=== PATIENT | male | born 1935 | race Hispanic/Latino ===

== ENCOUNTER 2016-07-31 15:28 | Inpatient (IN) | payer MEDICARE, OTHER ==
[2016-07-31] MEDS ORDERED: Sodium Chloride 0.9% 1,000 ML IV STA ×2 (15:50→17:45)
--- NOTE | 2016-07-31 16:03 | ED PDOC ---
HPI: General Adult Time Seen by Provider: 07/31/16 15:35 Chief Complaint (Nursing): Shortness Of Breath Chief Complaint (Provider): High heart rate History Per: Patient History/Exam Limitations: no limitations Onset/Duration Of Symptoms: Days (3) Additional Complaint(s): Pt. states he has had had bodyaches for [address] Gomez as he was urinating less and more freq. Was told he had a uti and given antibiotics. Went to Dr. Boswell as pain was present still in the body. There HR was elevated so sent to the ED. Pt. denies any dyspnea, weakness, headaches, chest pain, palpitations, dizziness, fever, cough. No numbness, tingles. Past Medical History Reviewed: Nursing Documentation, Vital Signs Vital Signs: Last Vital Signs Temp 98.2 F 07/31/16 15:35 Pulse 120 H 07/31/16 15:35 Resp 20 07/31/16 15:35 BP 128/70 07/31/16 15:35 Pulse Ox 94 L 07/31/16 16:09 - Medical History PMH: CAD - Surgical History Surgical History: No Surg Hx - Family History Family History: States: Unknown Family Hx - Living Arrangements Living Arrangements: With Family - Social History Current smoker - smoking cessation education provided: No Alcohol: None Drugs: Denies - Home Medications Home Medications: Ambulatory Orders Medication Instructions Recorded Digoxin [Lanoxin] PO DAILY 09/24/14 Tamsulosin [Flomax] PO DAILY 09/24/14 - Allergies Allergies/Adverse Reactions: Allergies Allergy/AdvReac Type Severity Reaction Status Date / Time No Known Allergies Allergy Verified 07/31/16 15:32 Review of Systems ROS Statement: Except As Marked, All Systems Reviewed And Found Negative Musculoskeletal: Positive for: Other (body aches) Physical Exam - Reviewed Nursing Documentation Reviewed: Yes Vital Signs Reviewed: Yes - Physical Exam Appears: Positive for: Uncomfortable Head Exam: Positive for: ATRAUMATIC, NORMAL INSPECTION, NORMOCEPHALIC Skin: Positive for: Normal Color, Warm, DRY Eye Exam: Positive for: EOMI, Normal appearance, PERRL ENT: Positive for: Normal ENT Inspection Neck: Positive for: Normal, Painless ROM Cardiovascular/Chest: Positive for: Tachycardia Respiratory: Positive for: Normal Breath Sounds. Negative for: Wheezing Gastrointestinal/Abdominal: Positive for: Normal Exam, Bowel Sounds, Soft. Negative for: Tenderness Back: Positive for: Normal Inspection. Negative for: L CVA Tenderness, R CVA Tenderness Extremity: Positive for: Normal ROM. Negative for: Tenderness, Pedal Edema Neurologic/Psych: Positive for: Alert, analytics associate II-XII, Oriented. Negative for: Motor/Sensory Deficits - Laboratory Results Result Diagrams: 07/31/16 16:00 07/31/16 16:00 Interpretation Of Abn Labs: 17 bands, bun 24 - ECG ECG: Positive for: Interpreted By Me, Viewed By Me Interpretation Of Abn EKG: afib O2 Sat by Pulse Oximetry: 94 Pulse Ox Interpretation: Normal - Radiology X-Ray: Interpreted by Me, Viewed By Me X-Ray Interpretation: No Acute Disease - CT Scan/US ct Other Rad Studies (CT/US): Read By Radiologist Other Rad Interpretation: no acute - Progress ED Course And Treament: 1815: Stable. AAOx3. Pt. urine nite pos. Likely uti and sepis. Pt. is dehydrated and getting fluids. Will need admit. 1845: Stable. Spoke with Dr. Bishop and Dr. Vigil. Dr. Kunz will admit. Dr. Rosa aware of pt. well. States hx of afib. On dig and metoprolol. 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 Wants no further rate control at this time. Sepsis likely causing HR issue. Wants dig level. Will see pt. later today. Spoke with ICU Will admit ICU. - Critical Care Total Time (In Min): 30 Documented Critical Care: Time excludes all time spent performint seperately billable procedures Disposition - Clinical Impression Clinical Impression: UTI (urinary tract infection), Sepsis, Afib - Patient ED Disposition Is Patient to be Admitted: Yes Counseled Patient/Family Regarding: Studies Performed, Diagnosis - Disposition Disposition Time: 18:50 Condition: FAIR - Pt Status Changed To: Hospital Disposition Of: Inpatient - Admit Certification Admit to Inpatient:: After my assessment, the patient will require hospitalization for at least two midnights. This is because of the severity of symptoms shown, intensity of services needed, and/or the medical risk in this patient being treated as an outpatient. - POA Present On Arrival: None
[2016-07-31 16:15] LABS: BASO % 0.2 % (0.0-2.0); EOS # 0.1 K/uL (0.0-0.7); EOS % 0.6 % (0.0-4.0); HEMATOCRIT 44.1 % (35.0-51.0); LYMPH # 0.2 K/uL (1.0-4.3); LYMPH % 1.9 % (20.0-40.0); MEAN CELL VOLUME 94.8 fl (80.0-94.0); MEAN CORPUSCULAR HGB CONC 32.7 g/dL (33.0-37.0); MEAN PLATELET VOLUME 9.5 fl (7.2-11.7); MONO # 0.2 K/uL (0.0-0.8); MONO % 2.7 % (0.0-10.0); NEUT # 7.6 K/uL (1.8-7.0); NEUT % 94.6 % (50.0-75.0); NRBC % 0.1 % (0.0-0.0); PLATELET COUNT 105 K/uL (130-400); RED CELL DISTRIBUTION WIDTH 13.4 % (11.5-14.5)
[2016-07-31 16:30] LABS: PARTIAL THROMBOPLASTIN TIME 30.6 SECONDS (23.3-32.5)
[2016-07-31 16:36] LABS: ALB/GLOB RATIO 0.9 (1.0-2.1); ALKALINE PHOSPHATASE 110 U/L (38-126); ALT/SGPT 48 U/L (21-72); AST/SGOT 60 U/L (17-59); BILIRUBIN,TOTAL 1.3 mg/dl (0.2-1.3); BLOOD UREA NITROGEN 24 mg/dl (9-20); CALCIUM 9.2 mg/dL (8.4-10.2); CARBON DIOXIDE 21 mmol/L (22-30); CHLORIDE 100 mmol/L (98-107); GFR AFRICAN-AMERICAN > 60; GLUCOSE,RANDOM 156 mg/dL (75-110); POTASSIUM 4.1 MMOL/L (3.6-5.0); SODIUM 131 mmol/l (132-148); TOTAL PROTEIN 6.9 G/DL (6.3-8.2)
[2016-07-31 17:40] LABS: NEUTROPHIL 79 % (42-75); TOTAL CELLS COUNTED 100
[2016-07-31 18:03] LABS: ABG ALLEN TEST YES; ARTERIAL BLOOD GAS HCO3 23.2 mmol/L (21-28); ARTERIAL BLOOD GAS PH 7.44 (7.35-7.45); ARTERIAL BLOOD GAS PO2 77 mm/Hg (80-100)
[2016-07-31] MEDS ORDERED: Piperacillin/Tazobact 3.375 GM in Sodium Chloride 0.9% 100 ML IVPB STA (18:17)
[2016-07-31] MEDS ORDERED: Piperacillin/Tazobact 3.375 gm Inj IVPB ONE (18:32)
[2016-07-31 19:00] LABS: RBC URINE 8 /hpf (0-3); URINE BACTERIA MANY (<OCC); URINE BILIRUBIN NEGATIVE (NEGATIVE); URINE COLOR AMBER (YELLOW); URINE GLUCOSE (UA) NEG (Normal); URINE KETONE NEGATIVE (NEGATIVE); URINE PROTEIN >=500 mg/dL (NEGATIVE); WBC URINE 58 /hpf (0-5)
[2016-07-31 19:02] LABS: URINE BLOOD SMALL (NEGATIVE); URINE LEUKOCYTE ESTERASE MOD Leu/uL (Negative)
[2016-07-31] MEDS: Sodium Chloride 0.9% 1,000 ML IV SCH (20:10)
--- NOTE | 2016-07-31 20:18 | CP.PCM.CON ---
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 Patient states he started feeling poorly ~3 days ago, and at one point felt unbalanced and had a fall in the bathroom. He then went into his PCP and told him about this and the urinary symptoms (appear to be frequency and hesitation), and was diagnosed with a UTI an put on cipro. Apparently he went in for a followup and at the office was found to have minimal improvement of symptoms as well as A fib with RVR. Patient states that he may have had a fever earlier. No chills, n/v/d. No CP/SOB/palpitations. As far as patient is aware, he has never been diagnosed with A fib. He states he is unaware of ever having an echocardiogram, only a stress test 15 years ago. He, however, is on digoxin and toprol XL. ROS: 14 systems reviewed, negative other than HPI MHx: ?CAD, ?myocardial bridge SHx: None Allergies: NKDA Medications: Per med rec Family Hx: Reviewed, denies any relevant history Social Hx: Lives with family, denies any tobacco use or any significant EtOH use Surrogate Dec Mkr: , contact info on file Past Patient History - Past Social History Alcohol: None Drugs: Denies - CARDIAC Hx Cardiac Disorders: Yes - GENITOURINARY/GYNECOLOGICAL Hx Genitourinary Disorders: Yes (UTI) - PSYCHIATRIC Hx Substance Use: No - SURGICAL HISTORY Other/Comment: bilat hernia surgery 10 years ago - ANESTHESIA Hx Anesthesia: No Meds Allergies/Adverse Reactions: Allergies Allergy/AdvReac Type Severity Reaction Status Date / Time No Known Allergies Allergy Verified 07/31/16 15:32 - Medications Medications: Current Medications Acetaminophen (Tylenol 325mg Tab) 650 mg PO Q6H PRN PRN Reason: Pain, Mild (1-3) Acetaminophen (Tylenol 325mg Tab) 650 mg PO Q6H PRN PRN Reason: Fever >100.4 F Enoxaparin Sodium (Lovenox) 40 mg SC DAILY ALYSHA PRN Reason: Protocol Diltiazem HCl 125 mg/ Sodium (Chloride) 125 mls @ 5 mls/hr IV .Q24H ONE; 5 MG/ HR PRN Reason: Protocol Stop: 08/01/16 17:05 Last Admin: 07/31/16 18:52 Dose: Not Given Piperacillin Sod/Tazobactam (Sod 3.375 gm/ Sodium Chloride) 100 mls @ 100 mls/ hr IVPB Q6 ALYSHA Sodium Chloride (Sodium Chloride 0.9%) 1,000 mls @ 100 mls/hr IV .Q10H ALYSHA Stop: 08/01/16 16:14 Physical Exam - Constitutional Appears: No Acute Distress - Head Exam Head Exam: ATRAUMATIC, NORMOCEPHALIC - Eye Exam Eye Exam: EOMI, PERRL - ENT Exam ENT Exam: Mucous Membranes Dry - Neck Exam Neck exam: Positive for: Full Rom - Respiratory Exam Respiratory Exam: Clear to Auscultation Bilateral, NORMAL BREATHING PATTERN - Cardiovascular Exam Cardiovascular Exam: Tachycardia, Irregular Rhythm, +S1, +S2 - GI/Abdominal Exam GI & Abdominal Exam: Normal Bowel Sounds, Soft - Extremities Exam Extremities exam: Positive for: full ROM - Neurological Exam Neurological exam: Alert, CN II-XII Intact, Oriented x3 - Psychiatric Exam Psychiatric exam: Normal Affect, Normal Mood - Skin Skin Exam: Dry, Warm Results - Vital Signs Recent Vital Signs: Last Vital Signs Temp 98.7 F 07/31/16 19:24 Pulse 126 H 07/31/16 19:24 Resp 18 07/31/16 19:24 BP 109/57 L 07/31/16 19:24 Pulse Ox 94 L 07/31/16 19:12 - Labs Result Diagrams: 07/31/16 16:00 07/31/16 16:00 - EKG Data EKG Interpreted by: Myself Rate: Tachycardia - EKG Data Interpretation: Acute Arrhythmia EKG comments: a fib rvr - Imaging and Cardiology Chest x-ray Status: Image reviewed by me (no acute findings) Assessment & Plan (1) Sepsis Assessment and Plan: 80 y/o with ?Cad and myocardial bridge who comes in with Sepsis 2/2 UTI and A fib with RVR. 1) Sepsis/UTI -Admit ICU -Cont IVF -Cont zosyn o/n, but he can probably be scaled down to LVQ or less broad spectrum abx if stable o/n -Hold BP meds 2/2 HTN -f/u cultures 2) A fib with RVR -- unclear if this is new or not; per patient report never heard this dx, but is on toprol and dig -Given that there is no recent echo in system, will obtain an echo -Will check serial trops o/n -Will check TSH -Will cont digoxin 3) DVT PPx -- SQ Lovenox Status: Acute (2) UTI (urinary tract infection) Status: Acute (3) Afib Status: Acute (4) DVT prophylaxis Status: Acute
[2016-07-31] MEDS ORDERED: Digoxin 500 mcg/2ml (0.5 mg/2ml) Inj IVP ONE (20:59)
--- NOTE | 2016-07-31 21:11 | CP.PCM.CON ---
History of Present Illness - History of Present Illness History of Present Illness: THE PATIENT IS A 80 YEAR OLD MALE WHO HAS A HISTORY OF ATRIAL FIBRILLATION MANY YEARS AGO AND HAS STAYED IN [facility] ON DIGOXIN. HE ALSO HAD CHEST PAIN MANY YEARS AGO AND HAD A CARDIAC CATH THAT SHOWED MYOCARDIAL BRIDGING WITH NORMAL CORONARY ARTERIES AND HE HAS REMAINED CHEST PAIN FREE ON METOPROLOL. HE ALSO HAS BPH. HE NOW STATES THAT FOR ONE WEEK HE HAS HAD WAEAKNESS, FEVERS, CHILLS, URINARY URGENCY AND FREQUENCY SMALL URINE AMOUNTS AND DARK URINE. HE HAD NOT BEEN ABLE TO EAT OR DRINK MUCH. HE WAS VERY WEAK AND FELL IN THE BATHROOM A FEW DAYS AGO. HE SAW HIS UROLOGIST 2 DAYS AGO AND WAS DIAGNOSED WITH A UTI AND WAS GIVEN CIPRO. HE DID NOT FEEL IMPROVED WITH THE CIPRO. HE SAW DR CLAUDIO IN THE OFFICE AND HE STILL FELT WEAK AND WAS FOUND TO BE IN ATRIAL FIBRILLATION AND WAS SENT TO THE ER WHERE HE WAS DIAGNOSED WITH UTI/SEPSIS AND IV FLUIDS AND ANTIBIOTICS WERE STARTED. HE HAD A LOW BP OF 88 SYSTOLIC AND IT IMPROVED WITH IV FLUIDS. HE WAS ALSO IN RAPID ATRIAL FIBRILLATION AND IV CARDIZEM WAS STARTED. CARDIOLOGY WAS CALLED TO SEE HIM. HE DENIES CHEST PAIN OR PALPITATIONS AND DENIES TRUE SYNCOPE. Past Patient History - Past Social History Alcohol: None Drugs: Denies - CARDIAC Hx Cardiac Disorders: Yes - GENITOURINARY/GYNECOLOGICAL Hx Genitourinary Disorders: Yes (UTI) - PSYCHIATRIC Hx Substance Use: No - SURGICAL HISTORY Other/Comment: bilat hernia surgery 10 years ago - ANESTHESIA Hx Anesthesia: No Meds Allergies/Adverse Reactions: Allergies Allergy/AdvReac Type Severity Reaction Status Date / Time No Known Allergies Allergy Verified 07/31/16 15:32 - Medications Medications: Current Medications Acetaminophen (Tylenol 325mg Tab) 650 mg PO Q6H PRN PRN Reason: Pain, Mild (1-3) Acetaminophen (Tylenol 325mg Tab) 650 mg PO Q6H PRN PRN Reason: Fever >100.4 F Aspirin (Ecotrin) 325 mg PO DAILY ALYSHA Digoxin (Lanoxin) 0.25 mg IVP ONCE ONE Stop: 07/31/16 21:00 Digoxin (Lanoxin) 0.25 mg PO DAILY ALYSHA Enoxaparin Sodium (Lovenox) 40 mg SC DAILY ALYSHA PRN Reason: Protocol Diltiazem HCl 125 mg/ Sodium (Chloride) 125 mls @ 5 mls/hr IV .Q24H ONE; 5 MG/ HR PRN Reason: Protocol Stop: 08/01/16 17:05 Last Admin: 07/31/16 18:52 Dose: Not Given Piperacillin Sod/Tazobactam (Sod 3.375 gm/ Sodium Chloride) 100 mls @ 100 mls/ hr IVPB Q6 ALYSHA Sodium Chloride (Sodium Chloride 0.9%) 1,000 mls @ 100 mls/hr IV .Q10H ALYSHA Stop: 08/01/16 16:14 Last Admin: 07/31/16 20:10 Dose: 100 mls/hr Physical Exam - Respiratory Exam Respiratory Exam: Clear to Auscultation Bilateral - Cardiovascular Exam Cardiovascular Exam: Tachycardia, Irregular Rhythm, +S1, +S2 - Extremities Exam Additional comments: NO LE EDEMA - Additional Findings Additional findings: EKG ATRIAL FIBRILLATION WITH RVR TROPONIN NEGATIVE DIGOXIN LEVEL 0.9 Results - Vital Signs Recent Vital Signs: Last Vital Signs Temp 98.1 F 07/31/16 20:10 Pulse 140 H 07/31/16 20:10 Resp 18 07/31/16 20:10 BP 111/78 07/31/16 20:10 Pulse Ox 97 07/31/16 20:10 - Labs Result Diagrams: 07/31/16 16:00 07/31/16 16:00 Labs: Laboratory Results - last 24 hr 07/31/16 07/31/16 19:30 19:45 Lactic Acid 1.1 Digoxin 0.9 Assessment & Plan - Assessment and Plan (Free Text) Assessment: UDTI/SEPSIS ATRIAL FIBRILLATION MYOCARDIAL BRIDGING BPH Plan: THE PATIENT WAS ADMITTED TO THE ICU O2, IV CARDIZEM, DIGOXIN, IV FLUIDS, IV ANTIBIOTICS, LOVENOX, ASPIRIN THE METOPROLOL WILL BE HELD FOR THE TIME BEING UNTIL HE IS WELL HYDRATED AND TREATED FOR UTI/SEPSIS TO PREVENT HYPOTENSION I BELIEVE THAT THE PATIENT MAY GO BACK TO SINUS RHYTHM AFTER HE IS REHYDRATED AND HAS ANTIBIOTIC TREATMENT FOR HIS UTI/SEPSIS AND WILL ONLY TREAT HIS ATRIAL FIBRILLATION WITH DIGOXIN AND IV CARDIZEM AND MONITOR THE RHYTHM FOR NOW SERIAL EKGS AND TROPONINS, TELEMETRY MONITORING
[2016-07-31] MEDS: Piperacillin/Tazobact 3.375 GM in Sodium Chloride 0.9% 100 ML IVPB SCH ×2 (22:06→22:07)
[2016-07-31 22:37] VITALS: BMI 29.0
[2016-08-01] MEDS: Piperacillin/Tazobact 3.375 GM in Sodium Chloride 0.9% 100 ML IVPB SCH ×4 (04:00→22:00)
[2016-08-01] MEDS ORDERED: Pneumococcal 23-Valent Vaccine IM ONE (06:00)
[2016-08-01 06:31] LABS: BLOOD UREA NITROGEN 19 mg/dl (9-20); CALCIUM 8.1 mg/dL (8.4-10.2); CARBON DIOXIDE 21 mmol/L (22-30); CHLORIDE 105 mmol/L (98-107); GFR AFRICAN-AMERICAN > 60; GLUCOSE,RANDOM 136 mg/dL (75-110); POTASSIUM 3.9 MMOL/L (3.6-5.0); SODIUM 132 mmol/l (132-148)
[2016-08-01 06:56] LABS: BASO % 0.4 % (0.0-2.0); HEMATOCRIT 38.7 % (35.0-51.0); LYMPH # 0.2 K/uL (1.0-4.3); LYMPH % 4.8 % (20.0-40.0); MEAN CELL VOLUME 94.6 fl (80.0-94.0); MEAN CORPUSCULAR HEMOGLOBIN 31.6 pg (27.0-31.0); MEAN CORPUSCULAR HGB CONC 33.3 g/dL (33.0-37.0); MEAN PLATELET VOLUME 9.7 fl (7.2-11.7); MONO # 0.2 K/uL (0.0-0.8); MONO % 3.9 % (0.0-10.0); NEUT # 3.8 K/uL (1.8-7.0); NEUT % 90.9 % (50.0-75.0); NRBC % 0.1 % (0.0-0.0); PLATELET COUNT 90 K/uL (130-400); RED CELL DISTRIBUTION WIDTH 13.4 % (11.5-14.5); WHITE BLOOD COUNT 4.2 K/uL (4.8-10.8)
[2016-08-01] MEDS: Sodium Chloride 0.9% 1,000 ML IV SCH (07:03)
--- NOTE | 2016-08-01 08:43 | CP.CCUPN ---
CCU Subjective - Physician Review Events Since Last Encounter (Free Text): 08/01/16 08:40 Patient awake, no distress, no fever, no chest pain, no vomiting, follow commands, events reviewed CCU Objective - Vital Signs / Intake & Output Vital Signs (Last 4 hours): Vital Signs Pulse Resp BP Pulse Ox 08/01/16 06:00 104 H 24 113/64 98 Intake and Output (Last 8hrs): Intake & Output 07/31/16 08/01/16 08/01/16 22:59 06:59 14:59 Intake Total 320 1140 Output Total 100 450 Balance 220 690 Weight 226 lb 223 lb 12.8 oz Intake: IV 200 700 Intake, Piggyback 100 Oral 120 340 Output: Urine 100 450 Urine, Voided 100 450 Other: # Bowel Movements 1 - Physical Exam Head: Positive for: Atraumatic, Normocephalic Pupils: Positive for: PERRL Conjunctiva: Positive for: Normal Ears: Positive for: Normal Mouth: Positive for: Moist Mucous Membranes Pharnyx: Positive for: Normal Nose (External): Positive for: Atraumatic Neck: Positive for: Normal Range of Motion Respiratory/Chest: Positive for: Clear to Auscultation Cardiovascular: Positive for: Irregular Rhythm Abdomen: Positive for: Normal Bowel Sounds Upper Extremity: Positive for: Normal Inspection Lower Extremity: Positive for: Normal Inspection Neurological: Positive for: GCS=15, CN II-XII Intact Psychiatric: Positive for: Alert, Oriented x 3 - Medications Active Medications: Active Medications Generic Name Dose Route Start Last Admin Trade Name Freq PRN Reason Stop Dose Admin Acetaminophen 650 mg 07/31/16 20:10 Tylenol 325mg Tab PO Q6H PRN Pain, Mild (1-3) Acetaminophen 650 mg 07/31/16 20:10 Tylenol 325mg Tab PO Q6H PRN Fever >100.4 F Aspirin 325 mg 08/01/16 09:00 Ecotrin PO DAILY [facility] Aspirin 81 mg 08/01/16 09:00 Ecotrin PO DAILY ALYSHA Digoxin 0.25 mg 08/01/16 09:00 Lanoxin PO DAILY [facility] Enoxaparin Sodium 40 mg 08/01/16 09:00 Lovenox SC DAILY [facility] Protocol Diltiazem HCl 125 mg/ Sodium 125 mls @ 5 mls/hr 07/31/16 17:06 07/31/16 18:52 Chloride IV 08/01/16 17:05 Not Given .Q24H ONE Protocol 5 MG/HR Piperacillin Sod/Tazobactam 100 mls @ 100 mls/hr 07/31/16 22:00 08/01/16 04:00 Sod 3.375 gm/ Sodium Chloride IVPB 100 mls/hr Q6 ALYSHA Administration Sodium Chloride 1,000 mls @ 100 mls/hr 07/31/16 20:15 08/01/16 07:03 Sodium Chloride 0.9% IV 08/01/16 16:14 100 mls/hr .Q10H ALYSHA Administration Tamsulosin HCl 0.4 mg 08/01/16 09:00 Flomax PO DAILY ALYSHA - Patient Studies Lab Studies: Lab Studies 08/01/16 08/01/16 07/31/16 Range/Units 06:18 06:02 20:38 WBC 4.2 L (4.8-10.8) K/uL RBC 4.09 L (4.40-5.90) Mil/uL Hgb 12.9 (12.0-18.0) g/dL Hct 38.7 (35.0-51.0) % MCV 94.6 H (80.0-94.0) fl MCH 31.6 H (27.0-31.0) pg MCHC 33.3 (33.0-37.0) g/dL RDW 13.4 (11.5-14.5) % Plt Count 90 L (130-400) K/uL MPV 9.7 (7.2-11.7) fl Neut % (Auto) 90.9 H (50.0-75.0) % Lymph % (Auto) 4.8 L (20.0-40.0) % [place] % (Auto) 3.9 (0.0-10.0) % Eos % (Auto) 0.0 (0.0-4.0) % Baso % (Auto) 0.4 (0.0-2.0) % Neut # 3.8 (1.8-7.0) K/uL Lymph # 0.2 L (1.0-4.3) K/uL [place] # 0.2 (0.0-0.8) K/uL Eos # 0.0 (0.0-0.7) K/uL Baso # 0.0 (0.0-0.2) K/uL Sodium 132 (132-148) mmol/l Potassium 3.9 (3.6-5.0) MMOL/L Chloride 105 (98-107) mmol/L Carbon Dioxide 21 L (22-30) mmol/L Anion Gap 10 (10-20) BUN 19 (9-20) mg/dl Creatinine 1.1 (0.8-1.5) mg/dL Est GFR ( Amer) > 60 Est GFR (Non-Af Amer) > 60 Random Glucose 136 H (75-110) mg/dL Lactic Acid (0.7-2.1) MMOL/L Calcium 8.1 L (8.4-10.2) mg/dL Troponin I 0.0230 0.0250 (0.00-0.120) ng/mL Digoxin (0.8-2.0) ng/mL 07/31/16 07/31/16 Range/Units 19:45 19:30 WBC (4.8-10.8) K/uL RBC (4.40-5.90) Mil/uL Hgb (12.0-18.0) g/dL Hct (35.0-51.0) % MCV (80.0-94.0) fl MCH (27.0-31.0) pg MCHC (33.0-37.0) g/dL RDW (11.5-14.5) % Plt Count (130-400) K/uL MPV (7.2-11.7) fl Neut % (Auto) (50.0-75.0) % Lymph % (Auto) (20.0-40.0) % [place] % (Auto) (0.0-10.0) % Eos % (Auto) (0.0-4.0) % Baso % (Auto) (0.0-2.0) % Neut # (1.8-7.0) K/uL Lymph # (1.0-4.3) K/uL [place] # (0.0-0.8) K/uL Eos # (0.0-0.7) K/uL Baso # (0.0-0.2) K/uL Sodium (132-148) mmol/l Potassium (3.6-5.0) MMOL/L Chloride (98-107) mmol/L Carbon Dioxide (22-30) mmol/L Anion Gap (10-20) BUN (9-20) mg/dl Creatinine (0.8-1.5) mg/dL Est GFR ( Amer) Est GFR (Non-Af Amer) Random Glucose (75-110) mg/dL Lactic Acid 1.1 (0.7-2.1) MMOL/L Calcium (8.4-10.2) mg/dL Troponin I (0.00-0.120) ng/mL Digoxin 0.9 (0.8-2.0) ng/mL Laboratory Results - last 24 hr 07/31/16 07/31/16 07/31/16 19:30 19:45 20:38 WBC RBC Hgb Hct MCV MCH MCHC RDW Plt Count MPV Neut % (Auto) Lymph % (Auto) [place] % (Auto) Eos % (Auto) Baso % (Auto) Neut # Lymph # [place] # Eos # Baso # Sodium Potassium Chloride Carbon Dioxide Anion Gap BUN Creatinine Est GFR ( Amer) Est GFR (Non-Af Amer) Random Glucose Lactic Acid 1.1 Calcium Troponin I 0.0250 Digoxin 0.9 08/01/16 08/01/16 06:02 06:18 WBC 4.2 L RBC 4.09 L Hgb 12.9 Hct 38.7 MCV 94.6 H MCH 31.6 H MCHC 33.3 RDW 13.4 Plt Count 90 L MPV 9.7 Neut % (Auto) 90.9 H Lymph % (Auto) 4.8 L [place] % (Auto) 3.9 Eos % (Auto) 0.0 Baso % (Auto) 0.4 Neut # 3.8 Lymph # 0.2 L [place] # 0.2 Eos # 0.0 Baso # 0.0 Sodium 132 Potassium 3.9 Chloride 105 Carbon Dioxide 21 L Anion Gap 10 BUN 19 Creatinine 1.1 Est GFR ( Amer) > 60 Est GFR (Non-Af Amer) > 60 Random Glucose 136 H Lactic Acid Calcium 8.1 L Troponin I 0.0230 Digoxin EKG/Cardiology Studies: Cardiology / EKG Studies 08/01/16 08:00 EKG [ELECTROCARDIOGRAM] Routine Comment: Mode Of Transportation: PORTABLE Reason For Exam: at fib Critical Care Progress Note - Nutrition Nutrition: Nutrition Category Date Time Status Regular Diet [DIET] Diets 07/31/16 Breakfast Active Assessment/Plan - Assessment and Plan (Free Text) Assessment: A/P UTI, sepsis, myocardial bridge, CAD, A Fib - Antibiotics - IV fluid - Cardiology follow up - Continue meds
[2016-08-01] MEDS ORDERED: Aspirin 325 mg EC Tablets PO SCH (09:00)
[2016-08-01] MEDS ORDERED: Digoxin 250 mcg (0.25 mg) Tab PO SCH (09:00)
[2016-08-01] MEDS: Digoxin 250 mcg (0.25 mg) Tab PO SCH (10:35)
[2016-08-01] MEDS: Enoxaparin 40 mg Syringe SC SCH (10:35)
--- NOTE | 2016-08-01 10:58 | RAD ---
HISTORY: tachy COMPARISON: 2011 FINDINGS: LUNGS: No active pulmonary disease. PLEURA: No significant pleural effusion identified, no pneumothorax apparent. CARDIOVASCULAR: Normal. OSSEOUS STRUCTURES: No significant abnormalities. VISUALIZED UPPER ABDOMEN: Normal. OTHER FINDINGS: None. IMPRESSION: No active disease.
[2016-08-01 11:47] LABS: TOTAL CELLS COUNTED 100
[2016-08-01 11:48] LABS: NEUTROPHIL 75 % (42-75)
[2016-08-01 11:49] LABS: EOSINOPHIL 1 % (0-7)
--- NOTE | 2016-08-01 23:56 | CP.PCM.HP ---
History of Present Illness - History of Present Illness History of Present Illness: 80 yo with hx of A-fib Myocardial bridging admitted for a-fib with RVR and probable sepsis 2 to UTI/Prostatitis Present on Admission - Present on Admission Any Indicators Present on Admission: No Past Patient History - Past Medical History & Family History Past Medical History?: Yes - Past Social History Alcohol: None Drugs: Denies - CARDIAC Hx Cardiac Disorders: Yes - MUSCULOSKELETAL/RHEUMATOLOGICAL Hx Falls: Yes - GENITOURINARY/GYNECOLOGICAL Hx Genitourinary Disorders: Yes (UTI) - PSYCHIATRIC Hx Substance Use: No - SURGICAL HISTORY Other/Comment: bilat hernia surgery 10 years ago - ANESTHESIA Hx Anesthesia: No Meds Allergies/Adverse Reactions: Allergies Allergy/AdvReac Type Severity Reaction Status Date / Time No Known Allergies Allergy Verified 07/31/16 15:32 Physical Exam - Respiratory Exam Respiratory Exam: NORMAL BREATHING PATTERN - Cardiovascular Exam Cardiovascular Exam: REGULAR RHYTHM - GI/Abdominal Exam GI & Abdominal Exam: Normal Bowel Sounds Results - Vital Signs Recent Vital Signs: Last Vital Signs Temp 98.0 F 08/01/16 20:00 Pulse 118 H 08/01/16 22:00 Resp 21 08/01/16 22:00 BP 142/77 08/01/16 22:00 Pulse Ox 96 08/01/16 22:00 - Labs Result Diagrams: 08/01/16 06:02 08/01/16 06:02 Labs: Laboratory Results - last 24 hr 08/01/16 08/01/16 06:02 06:18 WBC 4.2 L RBC 4.09 L Hgb 12.9 Hct 38.7 MCV 94.6 H MCH 31.6 H MCHC 33.3 RDW 13.4 Plt Count 90 L MPV 9.7 Neut % (Auto) 90.9 H Lymph % (Auto) 4.8 L [place] % (Auto) 3.9 Eos % (Auto) 0.0 Baso % (Auto) 0.4 Neut # 3.8 Lymph # 0.2 L [place] # 0.2 Eos # 0.0 Baso # 0.0 Neutrophils % (Manual) 75 Band Neutrophils % 13 H* Lymphocytes % (Manual) 6 L Monocytes % (Manual) 5 Eosinophils % (Manual) 1 Platelet Estimate Decreased L RBC Morphology Normal Macrocytosis (manual) Slight Sodium 132 Potassium 3.9 Chloride 105 Carbon Dioxide 21 L Anion Gap 10 BUN 19 Creatinine 1.1 Est GFR ( Amer) > 60 Est GFR (Non-Af Amer) > 60 Random Glucose 136 H Calcium 8.1 L Troponin I 0.0230 Assessment & Plan - Assessment and Plan (Free Text) Assessment: A-fib with RVR Myocardial bridging Dig Cardiezem ASA ?? sepsis 2 to UTI/Prostatitis Abx Flomax cultures - Date & Time Date: 08/01/16 Time: 22:22
[2016-08-02] MEDS: Piperacillin/Tazobact 3.375 GM in Sodium Chloride 0.9% 100 ML IVPB SCH ×2 (04:23→09:16)
--- NOTE | 2016-08-02 06:46 | CARD ---
APPROVED REPORT EXAM: Two-dimensional and M-mode echocardiogram with Doppler and color Doppler. Other Information Quality : GoodRhythm : Atrial Fibrillation INDICATION Atrial Fibrillation 2D DIMENSIONS IVSd0.98 (0.7-1.1cm)LVDd2.99 (3.9-5.9cm) LVOT Diameter2.67 (1.8-2.4cm)PWd1.05 (0.7-1.1cm) IVSs1.59 (0.8-1.2cm)LVDs2.78 (2.5-4.0cm) FS (%) 7.3 %PWs1.66 (0.8-1.2cm) M-Mode DIMENSIONS Left Atrium (MM)4.34 (2.5-4.0cm)Aortic Root3.44 (2.2-3.7cm) Aortic Cusp Exc.2.06 (1.5-2.0cm) Aortic Valve AI P 1/2 [id number] Mitral Valve E/A ratio0.0 TDI E/Lateral E'0.0E/Medial E'0.0 Tricuspid Valve TR Peak [id number] [id number] Peak Gr.17mmHg [id number] LEFT VENTRICLE The left ventricle is normal size. There is normal left ventricular wall thickness. The left ventricular function is normal. The left ventricular ejection fraction is 55% There is normal LV segmental wall motion. Not determined due to afib No left ventricle thrombus noted on this study. There is no ventricular septal defect visualized. There is no left ventricular aneurysm. There is no mass noted in the left ventricle. RIGHT VENTRICLE The right ventricle is normal size. There is normal right ventricular wall thickness. The right ventricular systolic function is normal. ATRIA The left atrium is mildly dilated. The right atrium size is normal. The interatrial septum is intact with no evidence for an atrial septal defect. AORTIC VALVE The aortic valve is mildly sclerotic. There is mild aortic regurgitation. There is no aortic valvular stenosis. There is no aortic valvular vegetation. MITRAL VALVE Mitral annular calcification is moderate to severe. The mitral valve leaflets are thickened and calcified. There is no evidence of mitral valve prolapse. There is no mitral valve stenosis. There is no mitral valve regurgitation noted. TRICUSPID VALVE The tricuspid valve is normal in structure and function. There is mild tricuspid regurgitation. Right ventricular systolic pressure is estimated at less than 30 mmHg. There is no tricuspid valve prolapse or vegetation. There is no tricuspid valve stenosis. PULMONIC VALVE The pulmonary valve is normal in structure and function. There is no pulmonic valvular regurgitation. There is no pulmonic valvular stenosis. GREAT VESSELS The aortic root is normal in size. The ascending aorta is normal in size. The IVC is normal in size and collapses >50% with inspiration. PERICARDIAL EFFUSION The pericardium appears normal. There is no pleural effusion. <Conclusion> Normal LV Systolic Function Aortic Valve Sclerosis Mild Aortic Insufficiency Mitral Annular Calcification Aortic Valve Sclerosis
--- NOTE | 2016-08-02 07:47 | CP.CCUPN ---
CCU Subjective - Physician Review Events Since Last Encounter (Free Text): 08/02/16 07:46 Patient awake, no distress, no fever, no chest pain, no vomiting, follow commands, events reviewed CCU Objective - Vital Signs / Intake & Output Vital Signs (Last 4 hours): Vital Signs Temp Pulse Resp BP Pulse Ox 08/02/16 06:00 105 H 29 H 113/58 L 95 08/02/16 04:00 98.0 F 103 H 22 107/64 93 L Intake and Output (Last 8hrs): Intake & Output 08/01/16 08/02/16 08/02/16 22:59 06:59 14:59 Intake Total 1020 160 Output Total 800 600 Balance 220 -440 Intake: IV 500 40 Intake, Piggyback 200 Oral 320 120 Output: Urine 800 600 Urine, Voided 800 600 Other: # Voids Urine, Voided 2 2 # Bowel Movements 1 1 - Physical Exam Head: Positive for: Atraumatic, Normocephalic Pupils: Positive for: PERRL Conjunctiva: Positive for: Normal Ears: Positive for: Normal Mouth: Positive for: Moist Mucous Membranes Pharnyx: Positive for: Normal Nose (External): Positive for: Atraumatic Neck: Positive for: Normal Range of Motion Respiratory/Chest: Positive for: Clear to Auscultation Cardiovascular: Positive for: Irregular Rhythm Abdomen: Positive for: Normal Bowel Sounds Upper Extremity: Positive for: Normal Inspection Lower Extremity: Positive for: Normal Inspection Neurological: Positive for: GCS=15, CN II-XII Intact Psychiatric: Positive for: Alert, Oriented x 3 - Medications Active Medications: Active Medications Generic Name Dose Route Start Last Admin Trade Name Freq PRN Reason Stop Dose Admin Acetaminophen 650 mg 07/31/16 20:10 Tylenol 325mg Tab PO Q6H PRN Pain, Mild (1-3) Acetaminophen 650 mg 07/31/16 20:10 Tylenol 325mg Tab PO Q6H PRN Fever >100.4 F Aspirin 81 mg 08/01/16 09:00 08/01/16 10:34 Ecotrin PO 81 mg DAILY ALYSHA Administration Digoxin 0.25 mg 08/01/16 09:00 08/01/16 10:35 Lanoxin PO 0.25 mg DAILY ALYSHA Administration Enoxaparin Sodium 40 mg 08/01/16 09:00 08/01/16 10:35 Lovenox SC 40 mg DAILY ALYSHA Administration Protocol Piperacillin Sod/Tazobactam 100 mls @ 100 mls/hr 07/31/16 22:00 08/02/16 04:23 Sod 3.375 gm/ Sodium Chloride IVPB 100 mls/hr Q6 ALYSHA Administration Tamsulosin HCl 0.4 mg 08/01/16 09:00 08/01/16 10:35 Flomax PO 0.4 mg DAILY ALYSHA Administration - Patient Studies Lab Studies: Lab Studies 08/01/16 Range/Units 06:02 Neutrophils % (Manual) 75 (42-75) % Band Neutrophils % 13 H* (0-2) % Lymphocytes % (Manual) 6 L (20-50) % Monocytes % (Manual) 5 (0-10) % Eosinophils % (Manual) 1 (0-7) % Platelet Estimate Decreased L (NORMAL) RBC Morphology Normal (NORMAL) Macrocytosis (manual) Slight Laboratory Results - last 24 hr 08/01/16 06:02 Neutrophils % (Manual) 75 Band Neutrophils % 13 H* Lymphocytes % (Manual) 6 L Monocytes % (Manual) 5 Eosinophils % (Manual) 1 Platelet Estimate Decreased L RBC Morphology Normal Macrocytosis (manual) Slight EKG/Cardiology Studies: Cardiology / EKG Studies 08/01/16 08:00 EKG [ELECTROCARDIOGRAM] Routine Comment: Mode Of Transportation: PORTABLE Reason For Exam: at fib Critical Care Progress Note - Nutrition Nutrition: Nutrition Category Date Time Status Regular Diet [DIET] Diets 07/31/16 Breakfast Active Assessment/Plan - Assessment and Plan (Free Text) Assessment: A/P UTI, sepsis, myocardial bridge, CAD, A Fib - Antibiotics - IV fluid - Cardiology follow up - Continue meds
[2016-08-02 07:56] LABS: HEMATOCRIT 41.5 % (35.0-51.0); MEAN CELL VOLUME 94.6 fl (80.0-94.0); MEAN CORPUSCULAR HEMOGLOBIN 31.1 pg (27.0-31.0); MEAN CORPUSCULAR HGB CONC 32.9 g/dL (33.0-37.0); RED CELL DISTRIBUTION WIDTH 13.8 % (11.5-14.5); WHITE BLOOD COUNT 4.9 K/uL (4.8-10.8)
[2016-08-02 08:03] LABS: BLOOD UREA NITROGEN 16 mg/dl (9-20); CALCIUM 8.4 mg/dL (8.4-10.2); CARBON DIOXIDE 22 mmol/L (22-30); CHLORIDE 106 mmol/L (98-107); GFR AFRICAN-AMERICAN > 60; GLUCOSE,RANDOM 107 mg/dL (75-110); POTASSIUM 3.7 MMOL/L (3.6-5.0); SODIUM 134 mmol/l (132-148)
[2016-08-02] MEDS: Digoxin 250 mcg (0.25 mg) Tab PO SCH (08:36)
[2016-08-02] MEDS: Enoxaparin 40 mg Syringe SC SCH (08:37)
[2016-08-02 09:36] LABS: THYROID STIMULATING HORMONE 3.13 mIU/ML (0.46-4.68)
--- NOTE | 2016-08-02 11:50 | CP.PCM.PN ---
Subjective - Date & Time of Evaluation Date of Evaluation: 08/02/16 Time of Evaluation: 11:00 - Subjective Subjective: NO CHEST PAIN, PALPITATIONS OR SOB FEELS BETTER AND STRONGER TODAY Objective - Vital Signs/Intake and Output Vital Signs (last 24 hours): Temp Pulse Resp BP Pulse Ox 97.7 F 114 H 20 129/61 96 08/02/16 08:00 08/02/16 10:00 08/02/16 10:00 08/02/16 10:00 08/02/16 10:00 Intake and Output: 08/02/16 08/02/16 06:59 18:59 Intake Total 460 360 Output Total 950 500 Balance -490 -140 - Medications Medications: Current Medications Acetaminophen (Tylenol 325mg Tab) 650 mg PO Q6H PRN PRN Reason: Pain, Mild (1-3) Acetaminophen (Tylenol 325mg Tab) 650 mg PO Q6H PRN PRN Reason: Fever >100.4 F Aspirin (Ecotrin) 81 mg PO DAILY [facility] Last Admin: 08/02/16 08:36 Dose: 81 mg Digoxin (Lanoxin) 0.25 mg PO DAILY [facility] Last Admin: 08/02/16 08:36 Dose: 0.25 mg Enoxaparin Sodium (Lovenox) 40 mg SC DAILY [facility] PRN Reason: Protocol Last Admin: 08/02/16 08:37 Dose: 40 mg Piperacillin Sod/Tazobactam (Sod 3.375 gm/ Sodium Chloride) 100 mls @ 100 mls/ hr IVPB Q6 [facility] Last Admin: 08/02/16 09:16 Dose: 100 mls/hr Tamsulosin HCl (Flomax) 0.4 mg PO DAILY [facility] Last Admin: 08/02/16 08:36 Dose: 0.4 mg - Labs Labs: 08/02/16 06:00 08/02/16 06:00 PT 10.6 SECONDS (9.6-11.2) 07/31/16 16:00 INR 1.02 (0.92-1.08) 07/31/16 16:00 APTT 30.6 SECONDS (23.3-32.5) 07/31/16 16:00 - Respiratory Exam Respiratory Exam: Clear to Ausculation Bilateral - Cardiovascular Exam Cardiovascular Exam: Tachycardia, Irregular Rhythm, +S1, +S2 - Extremities Exam Extremities Exam: Normal Inspection - Additional Findings Additional findings: 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
--- NOTE | 2016-08-02 14:24 | CP.PCM.CON ---
History of Present Illness - History of Present Illness History of Present Illness: 80 y/o male comes in with several days of urinary symptoms as well as a fall, and A fib with RVR. Patient states he started feeling poorly ~3 days ago, and at one point felt unbalanced and had a fall in the bathroom. He then went into his PCP and told him about this and the urinary symptoms (appear to be frequency and hesitation) , and was diagnosed with a UTI an put on cipro. IN ICU WAS FOUND TO HAVE ESBL + ECOLI ON URINE CULTURE MHx: ?myocardial bridge, BPH BY HX SHx: None Allergies: NKDA Medications: digoxin, toprol xl, cipro asa Family Hx: denies any relevant history Social Hx: Lives with family, denies any tobacco use or any significant EtOH use Review of Systems - Constitutional Constitutional: Anorexia, Malaise - EENT Eyes: absent: As Per HPI, Blind Spots, Blurred Vision, Change in Vision, Decreased Night Vision, Diplopia, Discharge, Dry Eye, Exophthalmos, Floaters, Irritation, Itchy Eyes, Loss of Peripheral Vision, Pain, Photophobia, Requires Corrective Lenses, Sees Flashes, Spots in Vision, Tunnel Vision, Other Visual Disturbances, Loss of Vision, Other Ears: absent: As Per HPI, Decreased Hearing, Ear Discharge, Ear Pain, Tinnitus, Abnormal Hearing, Disequilibrium, Dizziness, Other Nose/Mouth/Throat: absent: As Per HPI, Epistaxis, Nasal Congestion, Nasal Discharge, Nasal Obstruction, Nasal Trauma, Nose Pain, Post Nasal Drip, Sinus Pain, Sinus Pressure, Bleeding Gums, Change in Voice, Dental Pain, Dry Mouth, Dysphagia, Halitosis, Hoarsness, Lip Swelling, Mouth Lesions, Mouth Pain, Odynophagia, Sore Throat, Throat Swelling, Tongue Swelling, Facial Pain, Neck Pain, Neck Mass, Other - Cardiovascular Cardiovascular: As Per HPI - Respiratory Respiratory: absent: As Per HPI, Cough, Dyspnea, Hemoptysis, Dyspnea on Exertion , Wheezing, Snoring, Stridor, Pain on Inspiration, Chest Congestion, Excessive Mucous Production, Change in Mucous Color, Pain with Coughing, Other - Gastrointestinal Gastrointestinal: absent: As Per HPI, Abdominal Pain, Belching, Bloating, Change in Bowel Habits, Change in Stool Character, Coffee Ground Emesis, Constipation, Cramping, Diarrhea, Dyspepsia, Dysphagia, Early Satiety, Excessive Flatus, Fecal Incontinence, Heartburn, Hematemesis, Hematochezia, Loose Stools, Melena, Nausea, Odynophagia, Temesmus, Vomiting, Other - Genitourinary Genitourinary: As Per HPI, Change in Urinary Stream, Difficulty Urinating, Urinary Incontinence, Urinary Frequency, Urinary Hesitance, Voiding Freq/Small Amts - Musculoskeletal Musculoskeletal: absent: As Per HPI, Abnormal Gait, Arthralgias, Atrophy, Back Pain, Deformity, Joint Swelling, Limited Range of Motion, Loss of Height, Muscle Cramps, Muscle Weakness, Myalgias, Neck Pain, Numbness, Radiating Pain into Limb, Stiffness, Tingling, Other - Integumentary Integumentary: absent: As Per HPI, Acne, Alopecia, Bleeding Lesions, Change in Hair, Change in Nails, Change in Pigmentation, Changing Lesions, Dry Skin, Erythema, Furuncle, Hirsutism, Lesions, New Lesions, Non-Healing Lesions, Photosensitivity, Pruritus, Rash, Skin Pain, Skin Ulcer, Sores, Striae, Swelling , Unusual Bruising, Wounds, Jaundice, Other - Neurological Neurological: absent: As Per HPI, Abnormal Gait, Abnormal Hearing, Abnormal Movements, Abnormal Speech, Behavioral Changes, Burning Sensations, Confusion, Convulsions, Disequilibrium, Dizziness, Numbness, Focal Weakness, Frequent Falls , Headaches, Lack of Coordination, Loss of Vision, Memory Loss, Paresthesias, Radicular Pain, Restless Legs, Sensory Deficit, Syncope, Tingling, Tremor, Vertigo, Weakness, Other Visual Disturbances, Other - Psychiatric Psychiatric: absent: As Per HPI, Abnormal Sleep Pattern, Anhedonia, Anxiety, Auditory Hallucinations, Behavioral Changes, Change in Appetite, Change in Libido, Confusion, Depression, Difficulty Concentrating, Hallucinations, Homicidal Ideation, Hopelessness, Irritability, Memory Loss, Mood Swings, Panic Attacks, Paranoia, Suicidal Ideation, Visual Hallucinations, Tactile Hallucinations, Other - Endocrine Endocrine: absent: As Per HPI, Change in Body Appearance, Change in Libido, Cold Intolorance, Deepening of Voice, Excessive Sweating, Fatigue, Flushing, Heat Intolorance, Increase in Ring/Shoe/Hat Size, Palpitations, Polydipsia, Polyphagia, Polyuria, Other Past Patient History - Past Medical History & Family History Past Medical History?: Yes - Past Social History Alcohol: None Drugs: Denies - CARDIAC Hx Cardiac Disorders: Yes - MUSCULOSKELETAL/RHEUMATOLOGICAL Hx Falls: Yes - GENITOURINARY/GYNECOLOGICAL Hx Genitourinary Disorders: Yes (UTI) - PSYCHIATRIC Hx Substance Use: No - SURGICAL HISTORY Other/Comment: bilat hernia surgery 10 years ago - ANESTHESIA Hx Anesthesia: No Meds Allergies/Adverse Reactions: Allergies Allergy/AdvReac Type Severity Reaction Status Date / Time No Known Allergies Allergy Verified 07/31/16 15:32 - Medications Medications: Current Medications Acetaminophen (Tylenol 325mg Tab) 650 mg PO Q6H PRN PRN Reason: Pain, Mild (1-3) Acetaminophen (Tylenol 325mg Tab) 650 mg PO Q6H PRN PRN Reason: Fever >100.4 F Amiodarone HCl (Cordarone) 200 mg PO DAILY [facility] Aspirin (Ecotrin) 81 mg PO DAILY [facility] Last Admin: 08/02/16 08:36 Dose: 81 mg Digoxin (Lanoxin) 0.25 mg PO DAILY [facility] Last Admin: 08/02/16 08:36 Dose: 0.25 mg Enoxaparin Sodium (Lovenox) 40 mg SC DAILY [facility] PRN Reason: Protocol Last Admin: 08/02/16 08:37 Dose: 40 mg Piperacillin Sod/Tazobactam (Sod 3.375 gm/ Sodium Chloride) 100 mls @ 100 mls/ hr IVPB Q6 [facility] Last Admin: 08/02/16 09:16 Dose: 100 mls/hr Metoprolol Tartrate (Lopressor) 12.5 mg PO Q12 [facility] Tamsulosin HCl (Flomax) 0.4 mg PO DAILY [facility] Last Admin: 08/02/16 08:36 Dose: 0.4 mg Physical Exam - Constitutional Appears: Non-toxic, Chronically Ill - Head Exam Head Exam: NORMOCEPHALIC - Eye Exam Eye Exam: PERRL. absent: Scleral icterus Pupil Exam: NORMAL ACCOMODATION - ENT Exam ENT Exam: Mucous Membranes Dry, Normal External Ear Exam, Normal Oropharynx - Neck Exam Neck exam: Negative for: Lymphadenopathy, Thyromegaly - Respiratory Exam Respiratory Exam: Clear to Auscultation Bilateral - Cardiovascular Exam Cardiovascular Exam: Irregular Rhythm, REGULAR RHYTHM, +S1, +S2. absent: Systolic Murmur - GI/Abdominal Exam GI & Abdominal Exam: Diminished Bowel Sounds, Distended, Soft. absent: Guarding , Hernia, Organomegaly, Pulsatile Mass, Rebound, Rigid, Tenderness - Rectal Exam Rectal Exam: Deferred - Exam Exam: NORMAL INSPECTION - Extremities Exam Extremities exam: Positive for: pedal pulses present. Negative for: calf tenderness, pedal edema, tenderness - Back Exam Back exam: absent: CVA tenderness (L), CVA tenderness (R), paraspinal tenderness - Neurological Exam Neurological exam: Alert, CN II-XII Intact, Oriented x3, Reflexes Normal - Psychiatric Exam Psychiatric exam: Normal Mood - Skin Skin Exam: Dry, Intact Results - Vital Signs Recent Vital Signs: Last Vital Signs Temp 97.7 F 08/02/16 08:00 Pulse 118 H 08/02/16 13:00 Resp 18 08/02/16 12:00 BP 110/72 08/02/16 13:00 Pulse Ox 95 08/02/16 12:00 - Labs Result Diagrams: 08/02/16 06:00 08/02/16 06:00 Labs: Laboratory Results - last 24 hr 08/02/16 06:00 WBC 4.9 RBC 4.39 L Hgb 13.6 Hct 41.5 MCV 94.6 H MCH 31.1 H MCHC 32.9 L RDW 13.8 Plt Count 84 L Sodium 134 Potassium 3.7 Chloride 106 Carbon Dioxide 22 Anion Gap 10 BUN 16 Creatinine 0.9 Est GFR ( Amer) > 60 Est GFR (Non-Af Amer) > 60 Random Glucose 107 Calcium 8.4 TSH 3rd Generation 3.13 Assessment & Plan (1) Afib Status: Acute (2) Sepsis Status: Acute (3) UTI (urinary tract infection) Status: Acute (4) BPH (benign prostatic hypertrophy) Status: Acute (5) Infection due to ESBL-producing Escherichia coli Status: Acute - Assessment and Plan (Free Text) Assessment: CONT IV MERREM FOR MIN 7 DAYS MAY NEED RE-EVAL
--- NOTE | 2016-08-02 15:50 | CP.PCM.PN ---
Subjective - Date & Time of Evaluation Date of Evaluation: 08/02/16 Time of Evaluation: 22:22 - Subjective Subjective: Above noted Objective - Vital Signs/Intake and Output Vital Signs (last 24 hours): Temp Pulse Resp BP Pulse Ox 97.7 F 126 H 22 133/76 97 08/02/16 08:00 08/02/16 14:50 08/02/16 14:00 08/02/16 14:50 08/02/16 14:00 Intake and Output: 08/02/16 08/02/16 06:59 18:59 Intake Total 460 480 Output Total 950 900 Balance -490 -420 - Medications Medications: Current Medications Acetaminophen (Tylenol 325mg Tab) 650 mg PO Q6H PRN PRN Reason: Pain, Mild (1-3) Acetaminophen (Tylenol 325mg Tab) 650 mg PO Q6H PRN PRN Reason: Fever >100.4 F Amiodarone HCl (Cordarone) 200 mg PO DAILY [facility] Aspirin (Ecotrin) 81 mg PO DAILY [facility] Last Admin: 08/02/16 08:36 Dose: 81 mg Digoxin (Lanoxin) 0.25 mg PO DAILY [facility] Last Admin: 08/02/16 08:36 Dose: 0.25 mg Enoxaparin Sodium (Lovenox) 40 mg SC DAILY [facility] PRN Reason: Protocol Last Admin: 08/02/16 08:37 Dose: 40 mg Meropenem 1 gm/ Sodium (Chloride) 100 mls @ 100 mls/hr IVPB Q8 [facility] Metoprolol Tartrate (Lopressor) 12.5 mg PO Q12 [facility] Tamsulosin HCl (Flomax) 0.4 mg PO DAILY [facility] Last Admin: 08/02/16 08:36 Dose: 0.4 mg - Labs Labs: 08/02/16 06:00 08/02/16 06:00 PT 10.6 SECONDS (9.6-11.2) 07/31/16 16:00 INR 1.02 (0.92-1.08) 07/31/16 16:00 APTT 30.6 SECONDS (23.3-32.5) 07/31/16 16:00 - Respiratory Exam Respiratory Exam: NORMAL BREATHING PATTERN - Cardiovascular Exam Cardiovascular Exam: REGULAR RHYTHM - GI/Abdominal Exam GI & Abdominal Exam: Normal Bowel Sounds Assessment and Plan - Assessment and Plan (Free Text) Assessment: A-fib with RVR now VR Myocardial bridging Dig Cardiezem ASA B kaycee Amiodorone Cardiology ?? sepsis 2 to UTI/Prostatitis cultures E coli ESBL Abx changed Flomax Urology ID
[2016-08-02] MEDS: Meropenem 1 GM in Sodium Chloride 0.9% 100 ML IVPB SCH (16:30)
[2016-08-03] MEDS: Meropenem 1 GM in Sodium Chloride 0.9% 100 ML IVPB SCH ×3 (02:09→16:23)
[2016-08-03 05:34] LABS: BLOOD UREA NITROGEN 16 mg/dl (9-20); CALCIUM 8.3 mg/dL (8.4-10.2); CARBON DIOXIDE 23 mmol/L (22-30); CHLORIDE 106 mmol/L (98-107); GFR AFRICAN-AMERICAN > 60; GLUCOSE,RANDOM 106 mg/dL (75-110); POTASSIUM 3.9 MMOL/L (3.6-5.0); SODIUM 142 mmol/l (132-148)
[2016-08-03 05:56] LABS: BASO % 0.5 % (0.0-2.0); EOS # 0.1 K/uL (0.0-0.7); EOS % 1.1 % (0.0-4.0); HEMATOCRIT 41.7 % (35.0-51.0); MEAN CELL VOLUME 94.8 fl (80.0-94.0); MEAN CORPUSCULAR HEMOGLOBIN 30.6 pg (27.0-31.0); MEAN CORPUSCULAR HGB CONC 32.3 g/dL (33.0-37.0); MONO # 0.8 K/uL (0.0-0.8); MONO % 14.3 % (0.0-10.0); NEUT % 67.1 % (50.0-75.0); NRBC % 0.1 % (0.0-0.0); WHITE BLOOD COUNT 5.9 K/uL (4.8-10.8)
[2016-08-03 06:04] LABS: PROSTATE SPECIFIC ANTIGEN 48.1 ng/ML (0.00-4.0)
[2016-08-03] MEDS: Digoxin 250 mcg (0.25 mg) Tab PO SCH (08:17)
[2016-08-03] MEDS: Enoxaparin 40 mg Syringe SC SCH (08:19)
--- NOTE | 2016-08-03 09:52 | CP.PCM.PN ---
Subjective - Date & Time of Evaluation Date of Evaluation: 08/03/16 Time of Evaluation: 09:00 - Subjective Subjective: NO COMPLAINTS OF CHEST PAIN, PALPITATIONS OR SOB Objective - Vital Signs/Intake and Output Vital Signs (last 24 hours): Temp Pulse Resp BP Pulse Ox 98.3 F 118 H 24 114/71 95 08/03/16 08:00 08/03/16 09:00 08/03/16 09:00 08/03/16 09:00 08/03/16 09:00 Intake and Output: 08/03/16 08/03/16 06:59 18:59 Intake Total 100 120 Output Total 200 200 Balance -100 -80 - Medications Medications: Current Medications Acetaminophen (Tylenol 325mg Tab) 650 mg PO Q6H PRN PRN Reason: Pain, Mild (1-3) Acetaminophen (Tylenol 325mg Tab) 650 mg PO Q6H PRN PRN Reason: Fever >100.4 F Amiodarone HCl (Cordarone) 200 mg PO DAILY [facility] Last Admin: 08/03/16 08:18 Dose: 200 mg Aspirin (Ecotrin) 81 mg PO DAILY [facility] Last Admin: 08/03/16 08:17 Dose: 81 mg Digoxin (Lanoxin) 0.25 mg PO DAILY [facility] Last Admin: 08/03/16 08:17 Dose: 0.25 mg Enoxaparin Sodium (Lovenox) 40 mg SC DAILY [facility] PRN Reason: Protocol Last Admin: 08/03/16 08:19 Dose: 40 mg Meropenem 1 gm/ Sodium (Chloride) 100 mls @ 100 mls/hr IVPB Q8 [facility] Last Admin: 08/03/16 08:20 Dose: 100 mls/hr Metoprolol Tartrate (Lopressor) 12.5 mg PO Q12 [facility] Last Admin: 08/03/16 08:16 Dose: 12.5 mg Tamsulosin HCl (Flomax) 0.4 mg PO DAILY [facility] Last Admin: 08/03/16 08:18 Dose: 0.4 mg - Labs Labs: 08/03/16 04:30 08/03/16 04:30 PT 10.6 SECONDS (9.6-11.2) 07/31/16 16:00 INR 1.02 (0.92-1.08) 07/31/16 16:00 APTT 30.6 SECONDS (23.3-32.5) 07/31/16 16:00 - Respiratory Exam Respiratory Exam: Clear to Ausculation Bilateral - Cardiovascular Exam Cardiovascular Exam: Tachycardia, Irregular Rhythm, +S1, +S2 - Extremities Exam Extremities Exam: Normal Inspection - Additional Findings 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
--- NOTE | 2016-08-03 09:57 | CARD ---
APPROVED REPORT EKG Measurement Heart [id number] <Conclusion> Atrial fibrillation with rapid ventricular response ST & T wave abnormality, consider lateral ischemia Abnormal ECG
--- NOTE | 2016-08-03 10:04 | CARD ---
APPROVED REPORT EKG Measurement Heart [id number] <Conclusion> Atrial fibrillation with rapid ventricular response Nonspecific ST and T wave abnormality Abnormal ECG
--- NOTE | 2016-08-03 10:11 | CARD ---
APPROVED REPORT EKG Measurement Heart [id number] <Conclusion> Supraventricular tachycardia with premature supraventricular complexes ST & T wave abnormality, consider lateral ischemia Abnormal ECG
[2016-08-03 12:02] LABS: URINE BILIRUBIN NEGATIVE (NEGATIVE); URINE BLOOD NEGATIVE (NEGATIVE); URINE COLOR YELLOW (YELLOW); URINE GLUCOSE (UA) NEG (Normal); URINE KETONE NEGATIVE (NEGATIVE); URINE LEUKOCYTE ESTERASE NEG Leu/uL (Negative); URINE PROTEIN NEGATIVE (NEGATIVE); WBC URINE 1 /hpf (0-5)
--- NOTE | 2016-08-03 19:23 | CP.PCM.PN ---
Subjective - Date & Time of Evaluation Date of Evaluation: 08/03/16 Time of Evaluation: 22:22 - Subjective Subjective: Wadsworth inserted 900 cc HR controlled Objective - Vital Signs/Intake and Output Vital Signs (last 24 hours): Temp Pulse Resp BP Pulse Ox 97.5 F L 111 H 17 120/91 H 95 08/03/16 16:00 08/03/16 18:00 08/03/16 18:00 08/03/16 18:00 08/03/16 18:00 Intake and Output: 08/03/16 08/04/16 18:59 06:59 Intake Total 1640 Output Total 1200 Balance 440 - Medications Medications: Current Medications Acetaminophen (Tylenol 325mg Tab) 650 mg PO Q6H PRN PRN Reason: Pain, Mild (1-3) Acetaminophen (Tylenol 325mg Tab) 650 mg PO Q6H PRN PRN Reason: Fever >100.4 F Amiodarone HCl (Cordarone) 200 mg PO DAILY [facility] Last Admin: 08/03/16 08:18 Dose: 200 mg Aspirin (Ecotrin) 81 mg PO DAILY [facility] Last Admin: 08/03/16 08:17 Dose: 81 mg Digoxin (Lanoxin) 0.25 mg PO DAILY [facility] Last Admin: 08/03/16 08:17 Dose: 0.25 mg Enoxaparin Sodium (Lovenox) 40 mg SC DAILY [facility] PRN Reason: Protocol Last Admin: 08/03/16 08:19 Dose: 40 mg Meropenem 1 gm/ Sodium (Chloride) 100 mls @ 100 mls/hr IVPB Q8 [facility] Last Admin: 08/03/16 16:23 Dose: 100 mls/hr Metoprolol Tartrate (Lopressor) 12.5 mg PO Q12 [facility] Last Admin: 08/03/16 08:16 Dose: 12.5 mg Tamsulosin HCl (Flomax) 0.4 mg PO DAILY [facility] Last Admin: 08/03/16 08:18 Dose: 0.4 mg - Labs Labs: 08/03/16 04:30 08/03/16 04:30 PT 10.6 SECONDS (9.6-11.2) 07/31/16 16:00 INR 1.02 (0.92-1.08) 07/31/16 16:00 APTT 30.6 SECONDS (23.3-32.5) 07/31/16 16:00 - Respiratory Exam Respiratory Exam: NORMAL BREATHING PATTERN - Cardiovascular Exam Cardiovascular Exam: Irregular Rhythm - GI/Abdominal Exam GI & Abdominal Exam: Normal Bowel Sounds Assessment and Plan - Assessment and Plan (Free Text) Assessment: A-fib with RVR now VR Myocardial bridging Dig Cardiezem ASA B kaycee Amiodorone Cardiology ?? sepsis 2 to UTI/BPH/ Urinary retention Wadsworth inserted E coli ESBL Abx Flomax Urology ID
[2016-08-04] MEDS: Meropenem 1 GM in Sodium Chloride 0.9% 100 ML IVPB SCH ×3 (01:00→16:05)
[2016-08-04] MEDS: Enoxaparin 40 mg Syringe SC SCH (08:51)
[2016-08-04] MEDS: Digoxin 250 mcg (0.25 mg) Tab PO SCH (08:51)
--- NOTE | 2016-08-04 11:03 | CP.PCM.PN ---
Subjective - Date & Time of Evaluation Date of Evaluation: 08/04/16 Time of Evaluation: 09:00 - Subjective Subjective: IN ICU WAS FOUND TO HAVE ESBL + ECOLI ON URINE CULTURE on merrem Objective - Vital Signs/Intake and Output Vital Signs (last 24 hours): Temp Pulse Resp BP Pulse Ox 97.6 F 116 H 14 115/62 94 L 08/04/16 08:00 08/04/16 08:50 08/04/16 08:00 08/04/16 08:50 08/04/16 08:00 Intake and Output: 08/04/16 08/04/16 06:59 18:59 Intake Total 746 Output Total 1200 Balance -454 - Medications Medications: Current Medications Acetaminophen (Tylenol 325mg Tab) 650 mg PO Q6H PRN PRN Reason: Pain, Mild (1-3) Acetaminophen (Tylenol 325mg Tab) 650 mg PO Q6H PRN PRN Reason: Fever >100.4 F Amiodarone HCl (Cordarone) 200 mg PO DAILY [facility] Last Admin: 08/04/16 08:50 Dose: 200 mg Aspirin (Ecotrin) 81 mg PO DAILY [facility] Last Admin: 08/04/16 08:50 Dose: 81 mg Digoxin (Lanoxin) 0.25 mg PO DAILY [facility] Last Admin: 08/04/16 08:51 Dose: 0.25 mg Meropenem 1 gm/ Sodium (Chloride) 100 mls @ 100 mls/hr IVPB Q8 [facility] Last Admin: 08/04/16 08:52 Dose: 100 mls/hr Metoprolol Tartrate (Lopressor) 12.5 mg PO Q12 [facility] Last Admin: 08/04/16 08:51 Dose: 12.5 mg Tamsulosin HCl (Flomax) 0.4 mg PO DAILY [facility] Last Admin: 08/04/16 08:51 Dose: 0.4 mg - Labs Labs: 08/03/16 04:30 08/03/16 04:30 PT 10.6 SECONDS (9.6-11.2) 07/31/16 16:00 INR 1.02 (0.92-1.08) 07/31/16 16:00 APTT 30.6 SECONDS (23.3-32.5) 07/31/16 16:00 - Constitutional Appears: Non-toxic, Chronically Ill - Head Exam Head Exam: NORMOCEPHALIC - Eye Exam Eye Exam: absent: Scleral icterus - ENT Exam ENT Exam: Mucous Membranes Dry - Neck Exam Neck Exam: absent: Lymphadenopathy - Respiratory Exam Respiratory Exam: Decreased Breath Sounds, Clear to Ausculation Bilateral - Cardiovascular Exam Cardiovascular Exam: REGULAR RHYTHM - GI/Abdominal Exam GI & Abdominal Exam: Distended, Soft Assessment and Plan (1) Afib Status: Acute (2) Sepsis Status: Acute (3) UTI (urinary tract infection) Status: Acute (4) BPH (benign prostatic hypertrophy) Status: Acute (5) Infection due to ESBL-producing Escherichia coli Status: Acute
--- NOTE | 2016-08-04 11:35 | CP.PCM.PN ---
Subjective - Date & Time of Evaluation Date of Evaluation: 08/04/16 Time of Evaluation: 08:30 - Subjective Subjective: NO CHEST PAIN, PALPITATIONS OR SOB Objective - Vital Signs/Intake and Output Vital Signs (last 24 hours): Temp Pulse Resp BP Pulse Ox 97.6 F 116 H 14 115/62 94 L 08/04/16 08:00 08/04/16 08:50 08/04/16 08:00 08/04/16 08:50 08/04/16 08:00 Intake and Output: 08/04/16 08/04/16 06:59 18:59 Intake Total 746 200 Output Total 1200 Balance -454 200 - Medications Medications: Current Medications Acetaminophen (Tylenol 325mg Tab) 650 mg PO Q6H PRN PRN Reason: Pain, Mild (1-3) Acetaminophen (Tylenol 325mg Tab) 650 mg PO Q6H PRN PRN Reason: Fever >100.4 F Amiodarone HCl (Cordarone) 200 mg PO DAILY [facility] Last Admin: 08/04/16 08:50 Dose: 200 mg Aspirin (Ecotrin) 81 mg PO DAILY [facility] Last Admin: 08/04/16 08:50 Dose: 81 mg Digoxin (Lanoxin) 0.25 mg PO DAILY [facility] Last Admin: 08/04/16 08:51 Dose: 0.25 mg Meropenem 1 gm/ Sodium (Chloride) 100 mls @ 100 mls/hr IVPB Q8 [facility] Last Admin: 08/04/16 08:52 Dose: 100 mls/hr Metoprolol Tartrate (Lopressor) 12.5 mg PO Q12 [facility] Last Admin: 08/04/16 08:51 Dose: 12.5 mg Tamsulosin HCl (Flomax) 0.4 mg PO DAILY [facility] Last Admin: 08/04/16 08:51 Dose: 0.4 mg - Labs Labs: 08/03/16 04:30 08/03/16 04:30 PT 10.6 SECONDS (9.6-11.2) 07/31/16 16:00 INR 1.02 (0.92-1.08) 07/31/16 16:00 APTT 30.6 SECONDS (23.3-32.5) 07/31/16 16:00 - Respiratory Exam Respiratory Exam: Clear to Ausculation Bilateral - Cardiovascular Exam Cardiovascular Exam: Tachycardia, Irregular Rhythm, +S1, +S2 - Extremities Exam Extremities Exam: Normal Inspection - Additional Findings Additional findings: DIRECTOR CARD ATRIAL FIBRILLATION, R 105 Assessment and Plan - Assessment and Plan (Free Text) Assessment: ATRIAL FIBRILLATION UTI/SEPSIS Plan: CONTINUE DIGOXIN, METOPROLOL AND AMIODARONE
--- NOTE | 2016-08-04 21:30 | CP.PCM.PN ---
Subjective - Date & Time of Evaluation Date of Evaluation: 08/04/16 Time of Evaluation: 22:22 - Subjective Subjective: Above noted Objective - Vital Signs/Intake and Output Vital Signs (last 24 hours): Temp Pulse Resp BP Pulse Ox 98.3 F 79 22 126/68 97 08/04/16 20:00 08/04/16 20:40 08/04/16 20:00 08/04/16 20:17 08/04/16 14:00 Intake and Output: 08/04/16 08/05/16 18:59 06:59 Intake Total 1180 80 Output Total 800 Balance 380 80 - Medications Medications: Current Medications Acetaminophen (Tylenol 325mg Tab) 650 mg PO Q6H PRN PRN Reason: Pain, Mild (1-3) Acetaminophen (Tylenol 325mg Tab) 650 mg PO Q6H PRN PRN Reason: Fever >100.4 F Amiodarone HCl (Cordarone) 200 mg PO DAILY [facility] Last Admin: 08/04/16 08:50 Dose: 200 mg Aspirin (Ecotrin) 81 mg PO DAILY [facility] Last Admin: 08/04/16 08:50 Dose: 81 mg Digoxin (Lanoxin) 0.25 mg PO DAILY [facility] Last Admin: 08/04/16 08:51 Dose: 0.25 mg Meropenem 1 gm/ Sodium (Chloride) 100 mls @ 100 mls/hr IVPB Q8 [facility] Last Admin: 08/04/16 16:05 Dose: 100 mls/hr Metoprolol Tartrate (Lopressor) 12.5 mg PO Q12 [facility] Last Admin: 08/04/16 20:17 Dose: 12.5 mg Tamsulosin HCl (Flomax) 0.4 mg PO DAILY [facility] Last Admin: 08/04/16 08:51 Dose: 0.4 mg - Labs Labs: 08/03/16 04:30 08/03/16 04:30 PT 10.6 SECONDS (9.6-11.2) 07/31/16 16:00 INR 1.02 (0.92-1.08) 07/31/16 16:00 APTT 30.6 SECONDS (23.3-32.5) 07/31/16 16:00 - Respiratory Exam Respiratory Exam: NORMAL BREATHING PATTERN - Cardiovascular Exam Cardiovascular Exam: REGULAR RHYTHM - GI/Abdominal Exam GI & Abdominal Exam: Normal Bowel Sounds Assessment and Plan - Assessment and Plan (Free Text) Assessment: A-fib with RVR now VR Myocardial bridging Dig Cardiezem ASA B kaycee Amiodorone Cardiology ?? sepsis 2 to UTI/BPH/ Urinary retention Wadsworth inserted E coli ESBL Abx Flomax Urology ID
[2016-08-05] MEDS: Meropenem 1 GM in Sodium Chloride 0.9% 100 ML IVPB SCH ×3 (00:45→16:57)
[2016-08-05] MEDS: Digoxin 250 mcg (0.25 mg) Tab PO SCH (09:05)
--- NOTE | 2016-08-05 12:53 | CP.PCM.PN ---
Subjective - Date & Time of Evaluation Date of Evaluation: 08/05/16 Time of Evaluation: 11:15 - Subjective Subjective: NO COMPLAINTS FEELS MUCH BETTER Objective - Vital Signs/Intake and Output Vital Signs (last 24 hours): Temp Pulse Resp BP Pulse Ox 98.4 F 88 22 114/55 L 97 08/05/16 12:00 08/05/16 09:05 08/04/16 20:00 08/05/16 09:05 08/04/16 14:00 Intake and Output: 08/05/16 08/05/16 06:59 18:59 Intake Total 260 Output Total 1600 Balance -1340 - Medications Medications: Current Medications Acetaminophen (Tylenol 325mg Tab) 650 mg PO Q6H PRN PRN Reason: Pain, Mild (1-3) Acetaminophen (Tylenol 325mg Tab) 650 mg PO Q6H PRN PRN Reason: Fever >100.4 F Amiodarone HCl (Cordarone) 200 mg PO DAILY [facility] Last Admin: 08/05/16 09:03 Dose: 200 mg Aspirin (Ecotrin) 81 mg PO DAILY [facility] Last Admin: 08/05/16 09:04 Dose: 81 mg Digoxin (Lanoxin) 0.25 mg PO DAILY [facility] Last Admin: 08/05/16 09:05 Dose: 0.25 mg Meropenem 1 gm/ Sodium (Chloride) 100 mls @ 100 mls/hr IVPB Q8 [facility] Last Admin: 08/05/16 09:05 Dose: 100 mls/hr Metoprolol Tartrate (Lopressor) 12.5 mg PO Q12 [facility] Last Admin: 08/05/16 09:05 Dose: 12.5 mg Tamsulosin HCl (Flomax) 0.4 mg PO DAILY [facility] Last Admin: 08/05/16 09:04 Dose: 0.4 mg - Labs Labs: 08/03/16 04:30 08/03/16 04:30 PT 10.6 SECONDS (9.6-11.2) 07/31/16 16:00 INR 1.02 (0.92-1.08) 07/31/16 16:00 APTT 30.6 SECONDS (23.3-32.5) 07/31/16 16:00 - Respiratory Exam Respiratory Exam: Clear to Ausculation Bilateral - Cardiovascular Exam Cardiovascular Exam: Irregular Rhythm, +S1, +S2 - Extremities Exam Extremities Exam: Normal Inspection - 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
[2016-08-05 16:55] VITALS: RESP 20
--- NOTE | 2016-08-05 20:12 | CP.PCM.PN ---
Subjective - Date & Time of Evaluation Date of Evaluation: 08/05/16 Time of Evaluation: 22:22 - Subjective Subjective: Above noted Doing well Objective - Vital Signs/Intake and Output Vital Signs (last 24 hours): Temp Pulse Resp BP Pulse Ox 98.4 F 82 20 128/66 94 L 08/05/16 16:55 08/05/16 16:55 08/05/16 16:55 08/05/16 16:55 08/05/16 16:55 - Medications Medications: Current Medications Acetaminophen (Tylenol 325mg Tab) 650 mg PO Q6H PRN PRN Reason: Pain, Mild (1-3) Acetaminophen (Tylenol 325mg Tab) 650 mg PO Q6H PRN PRN Reason: Fever >100.4 F Amiodarone HCl (Cordarone) 200 mg PO DAILY [facility] Last Admin: 08/05/16 09:03 Dose: 200 mg Aspirin (Ecotrin) 81 mg PO DAILY [facility] Last Admin: 08/05/16 09:04 Dose: 81 mg Digoxin (Lanoxin) 0.25 mg PO DAILY [facility] Last Admin: 08/05/16 09:05 Dose: 0.25 mg Meropenem 1 gm/ Sodium (Chloride) 100 mls @ 100 mls/hr IVPB Q8 [facility] Last Admin: 08/05/16 16:57 Dose: 100 mls/hr Metoprolol Tartrate (Lopressor) 12.5 mg PO Q12 [facility] Last Admin: 08/05/16 09:05 Dose: 12.5 mg Tamsulosin HCl (Flomax) 0.4 mg PO DAILY [facility] Last Admin: 08/05/16 09:04 Dose: 0.4 mg - Labs Labs: 08/03/16 04:30 08/03/16 04:30 PT 10.6 SECONDS (9.6-11.2) 07/31/16 16:00 INR 1.02 (0.92-1.08) 07/31/16 16:00 APTT 30.6 SECONDS (23.3-32.5) 07/31/16 16:00 - Respiratory Exam Respiratory Exam: NORMAL BREATHING PATTERN - Cardiovascular Exam Cardiovascular Exam: Tachycardia - GI/Abdominal Exam GI & Abdominal Exam: Normal Bowel Sounds Assessment and Plan - Assessment and Plan (Free Text) Assessment: ?? sepsis 2 to UTI/BPH/ Urinary retention Wadsworth inserted E coli ESBL Meropenam Flomax d/w Urology pt to be seen aakash ID A-fib with RVR now VR Myocardial bridging Dig Cardiezem ASA B kaycee Amiodorone Cardiology
[2016-08-06] MEDS: Meropenem 1 GM in Sodium Chloride 0.9% 100 ML IVPB SCH ×3 (00:39→16:25)
[2016-08-06] MEDS ORDERED: Enoxaparin 40 mg Syringe SC SCH (09:00)
[2016-08-06] MEDS: Digoxin 250 mcg (0.25 mg) Tab PO SCH (09:30)
[2016-08-06 09:32] VITALS: PULSE 84
--- NOTE | 2016-08-06 10:19 | CP.PCM.PN ---
Subjective - Date & Time of Evaluation Date of Evaluation: 08/06/16 Time of Evaluation: 08:15 - Subjective Subjective: NO CHEST PAIN, PALPITATIONS OR SOB FEELS BETTER Objective - Vital Signs/Intake and Output Vital Signs (last 24 hours): Temp Pulse Resp BP Pulse Ox 98.1 F 84 20 104/65 94 L 08/06/16 08:29 08/06/16 09:31 08/06/16 08:29 08/06/16 09:31 08/06/16 08:29 Intake and Output: 08/06/16 08/06/16 06:59 18:59 Intake Total 100 Balance 100 - Medications Medications: Current Medications Acetaminophen (Tylenol 325mg Tab) 650 mg PO Q6H PRN PRN Reason: Pain, Mild (1-3) Acetaminophen (Tylenol 325mg Tab) 650 mg PO Q6H PRN PRN Reason: Fever >100.4 F Amiodarone HCl (Cordarone) 200 mg PO DAILY [facility] Last Admin: 08/06/16 09:30 Dose: 200 mg Aspirin (Ecotrin) 81 mg PO DAILY [facility] Last Admin: 08/06/16 09:30 Dose: 81 mg Digoxin (Lanoxin) 0.25 mg PO DAILY [facility] Last Admin: 08/06/16 09:30 Dose: 0.25 mg Enoxaparin Sodium (Lovenox) 40 mg SC DAILY [facility] PRN Reason: Protocol Meropenem 1 gm/ Sodium (Chloride) 100 mls @ 100 mls/hr IVPB Q8 [facility] Last Admin: 08/06/16 09:32 Dose: 100 mls/hr Metoprolol Tartrate (Lopressor) 12.5 mg PO Q12 [facility] Last Admin: 08/06/16 09:31 Dose: 12.5 mg Tamsulosin HCl (Flomax) 0.4 mg PO DAILY [facility] Last Admin: 08/06/16 09:30 Dose: 0.4 mg - Labs Labs: 08/03/16 04:30 08/03/16 04:30 PT 10.6 SECONDS (9.6-11.2) 07/31/16 16:00 INR 1.02 (0.92-1.08) 07/31/16 16:00 APTT 30.6 SECONDS (23.3-32.5) 07/31/16 16:00 - Respiratory Exam Respiratory Exam: Clear to Ausculation Bilateral - Cardiovascular Exam Cardiovascular Exam: Irregular Rhythm, +S1, +S2 - Extremities Exam Extremities Exam: Normal Inspection Assessment and Plan - Assessment and Plan (Free Text) Assessment: UTI/SEPSIS ATRIAL FIBRILLATION MYOCARDIAL BRIDGE BPH Plan: CONTINUE DIGOXON, AMIODARONE, METOPROLOL, ASPIRIN, LOVENOX AND ANTOBIOTICS EKG IN AM UROLOGY TO SEE
[2016-08-06 12:20] LABS: HEMATOCRIT 42.6 % (35.0-51.0); MEAN CELL VOLUME 95.2 fl (80.0-94.0); MEAN CORPUSCULAR HGB CONC 32.5 g/dL (33.0-37.0); RED CELL DISTRIBUTION WIDTH 14.3 % (11.5-14.5)
[2016-08-06 12:30] LABS: BLOOD UREA NITROGEN 19 mg/dl (9-20); CALCIUM 8.7 mg/dL (8.4-10.2); CARBON DIOXIDE 27 mmol/L (22-30); CHLORIDE 103 mmol/L (98-107); GFR AFRICAN-AMERICAN > 60; GLUCOSE,RANDOM 98 mg/dL (75-110); POTASSIUM 4.7 MMOL/L (3.6-5.0); SODIUM 134 mmol/l (132-148)
--- NOTE | 2016-08-06 12:40 | CP.PCM.PCO ---
Assessment/Plan - Assessment/Plan Assessment (Free Text): PT stable, in no apparent distress. Wadsworth catheter in place. Per Dr. Boswell, urologist will be in tonight to see pt. Pt can be transferred to TCU for continued treatment. Per Dr. Boo, 7 days of IV merrem, pt on day 4 today. Pt to complete treatment in TCU. MDs will follow. - Problems Patient Problems: Problem List (Active/Current) Problem Status Priority Diagnosed Code Afib Acute I48.91 BPH (benign prostatic hypertrophy) Acute N40.0 DVT prophylaxis Acute [id number] Infection due to ESBL-producing Escherichia coli Acute A49.8 Sepsis Acute A41.9 UTI (urinary tract infection) Acute N39.0
[2016-08-06 17:10] VITALS: TEMP 97.7
[2016-08-06 20:47] VITALS: BP 119/72; PULSE 100
--- NOTE | 2016-08-06 20:57 | CP.PCM.PN ---
Subjective - Date & Time of Evaluation Date of Evaluation: 08/06/16 Time of Evaluation: 22:22 - Subjective Subjective: Awaiting Urology Objective - Vital Signs/Intake and Output Vital Signs (last 24 hours): Temp Pulse Resp BP Pulse Ox 97.7 F 100 H 20 119/72 97 08/06/16 17:09 08/06/16 20:46 08/06/16 17:09 08/06/16 20:46 08/06/16 17:09 Intake and Output: 08/06/16 08/07/16 18:59 06:59 Output Total 1200 Balance -1200 - Medications Medications: Current Medications Acetaminophen (Tylenol 325mg Tab) 650 mg PO Q6H PRN PRN Reason: Pain, Mild (1-3) Acetaminophen (Tylenol 325mg Tab) 650 mg PO Q6H PRN PRN Reason: Fever >100.4 F Amiodarone HCl (Cordarone) 200 mg PO DAILY [facility] Last Admin: 08/06/16 09:30 Dose: 200 mg Aspirin (Ecotrin) 81 mg PO DAILY [facility] Last Admin: 08/06/16 09:30 Dose: 81 mg Digoxin (Lanoxin) 0.25 mg PO DAILY [facility] Last Admin: 08/06/16 09:30 Dose: 0.25 mg Enoxaparin Sodium (Lovenox) 40 mg SC DAILY [facility] PRN Reason: Protocol Last Admin: 08/06/16 16:25 Dose: 40 mg Meropenem 1 gm/ Sodium (Chloride) 100 mls @ 100 mls/hr IVPB Q8 [facility] Last Admin: 08/06/16 16:25 Dose: 100 mls/hr Metoprolol Tartrate (Lopressor) 12.5 mg PO Q12 [facility] Last Admin: 08/06/16 20:46 Dose: 12.5 mg Sodium Phosphate (Fleet Enema) 135 ml [place] ONCE ONE Stop: 08/06/16 21:01 Tamsulosin HCl (Flomax) 0.4 mg PO DAILY [facility] Last Admin: 08/06/16 09:30 Dose: 0.4 mg - Labs Labs: 08/06/16 12:12 08/06/16 12:12 PT 10.6 SECONDS (9.6-11.2) 07/31/16 16:00 INR 1.02 (0.92-1.08) 07/31/16 16:00 APTT 30.6 SECONDS (23.3-32.5) 07/31/16 16:00 - Respiratory Exam Respiratory Exam: NORMAL BREATHING PATTERN - Cardiovascular Exam Cardiovascular Exam: REGULAR RHYTHM - GI/Abdominal Exam GI & Abdominal Exam: Normal Bowel Sounds Assessment and Plan - Assessment and Plan (Free Text) Assessment: ?? sepsis 2 to UTI/BPH/ Urinary retention E coli ESBL Wadsworth Meropenam Flomax Urology TRUS ID A-fib with RVR now VR Myocardial bridging Dig Cardiezem ASA B kaycee Amiodorone Cardiology
[2016-08-06 21:37] VITALS: O2SAT 100
--- NOTE | 2016-08-07 11:28 | CARD ---
APPROVED REPORT EKG Measurement Heart [id number] <Conclusion> Atrial fibrillation Abnormal ECG
== END 2016-08-06 22:34 | DRG 872 ==
LOC: H.ER 15:28 → H.ERHOLD 18:40 → H.ICU/CCU 20:07 → H.MEDSURG1 08-05 12:14
PROVIDERS: ADMIT Family Medicine Geriatric Medicine; ATTEND Family Medicine Geriatric Medicine
PROC: 3E0234Z Introduction of Serum, Toxoid and Vaccine into Muscle, Percutaneous Approach (ICD-10-PCS; principal; 2016-08-01)
DX: A41.9 Sepsis, unspecified organism (principal); Q24.5 Malformation of coronary vessels; N39.0 Urinary tract infection, site not specified; E86.0 Dehydration; I48.91 Unspecified atrial fibrillation; I10 Essential (primary) hypertension; R33.8 Other retention of urine; N40.1 Benign prostatic hyperplasia with lower urinary tract symptoms; N41.9 Inflammatory disease of prostate, unspecified; B96.20 Unspecified Escherichia coli [E. coli] as the cause of diseases classified elsewhere; Z23 Encounter for immunization; Z16.12 Extended spectrum beta lactamase (ESBL) resistance

== ENCOUNTER 2016-08-06 12:45 | Inpatient (IN) | payer OTHER ==
[2016-08-06 21:45] VITALS: BMI 28.0
[2016-08-07] MEDS ORDERED: Meropenem 1 GM in Sodium Chloride 0.9% 100 ML IVPB SCH (01:00)
[2016-08-07 01:18] VITALS: RESP 20
[2016-08-07] MEDS ORDERED: Tuberculin 5 Units/0.1 ml Inj ID ONE (01:59)
[2016-08-07] MEDS ORDERED: Patient's Own Med (Meropenem [Merrem Iv] 1 GM) IV SCH (05:00)
[2016-08-07] MEDS: Meropenem 1 GM in Sodium Chloride 0.9% 100 ML IVPB SCH ×3 (05:18→23:24)
[2016-08-07] MEDS ORDERED: Digoxin 250 mcg (0.25 mg) Tab PO SCH (09:00)
[2016-08-07] MEDS: Enoxaparin 40 mg Syringe SC SCH (09:43)
--- NOTE | 2016-08-07 09:44 | CARD ---
APPROVED REPORT EKG Measurement Heart [id number] <Conclusion> Atrial fibrillation Nonspecific ST and T wave abnormality Abnormal ECG
[2016-08-07] MEDS ORDERED: Chlorhexidine Gluconate 1 APPL/PKT TP ONE (10:42)
--- NOTE | 2016-08-07 11:05 | CP.PCM.CON ---
History of Present Illness - History of Present Illness History of Present Illness: THE PATIENT IS A 80 YEAR OLD MALE ADMITTED TO [facility] ONE WEEK AGO FOR UROSEPSIS TREATED WITH IV ANTIBIOTICS AND FLUIDS. HE ALSO HAS A HISTORY OF ATRIAL FIBRILLATION, A MYOCARDIAL BRIDGE AND BPH. HE DENIES CHEST PAIN AND DOES NOT HAVE A HISTORY OF CAD. HE WAS TRANSFERRED TO TCU TO COMPLETE HIS COURSE OF IV ANTIBIOTICS AND TO BE SEEN BY UROLOGY. CARDIOLOGY WAS ASKED TO FOLLOW HIM IN TCU. Past Patient History - Past Medical History & Family History Past Medical History?: Yes - Past Social History Smoking Status: Never Smoked - CARDIAC Hx Cardiac Disorders: Yes Hx Atrial Fibrillation: Yes - PULMONARY Hx Respiratory Disorders: No - NEUROLOGICAL Hx Neurological Disorder: No - HEENT Hx HEENT Problems: No - RENAL Hx Chronic Kidney Disease: No - ENDOCRINE/METABOLIC Hx Endocrine Disorders: No - HEMATOLOGICAL/ONCOLOGICAL Hx Blood Disorders: No Hx AIDS: No Hx Blood Transfusions: No Hx Human Immunodeficiency Virus (HIV): No - INTEGUMENTARY Hx Dermatological Problems: No - MUSCULOSKELETAL/RHEUMATOLOGICAL Hx Falls: Yes - GASTROINTESTINAL Hx Gastrointestinal Disorders: No - GENITOURINARY/GYNECOLOGICAL Hx Genitourinary Disorders: Yes Hx Prostate Problems: Yes Hx Urinary Tract Infection: Yes - PSYCHIATRIC Hx Psychophysiologic Disorder: No Hx Substance Use: No - SURGICAL HISTORY Hx Surgeries: Yes Hx Herniorrhaphy: Yes Other/Comment: bilat hernia surgery 10 years ago - ANESTHESIA Hx Anesthesia: Yes Hx Anesthesia Reactions: No Hx Malignant Hyperthermia: No Meds Allergies/Adverse Reactions: Allergies Allergy/AdvReac Type Severity Reaction Status Date / Time No Known Allergies Allergy Verified 07/31/16 15:32 - Medications Medications: Current Medications Acetaminophen (Tylenol 325mg Tab) 650 mg PO Q6 PRN PRN Reason: Pain, Mild (1-3) Acetaminophen (Tylenol 325mg Tab) 650 mg PO Q6 PRN PRN Reason: Fever >100.4 F Amiodarone HCl (Cordarone) 200 mg PO DAILY [facility] Last Admin: 08/07/16 09:46 Dose: 200 mg Aspirin (Ecotrin) 81 mg PO DAILY [facility] Last Admin: 08/07/16 09:47 Dose: 81 mg Digoxin (Lanoxin) 0.25 mg PO DAILY [facility] Last Admin: 08/07/16 09:47 Dose: 0.25 mg Enoxaparin Sodium (Lovenox) 40 mg SC DAILY [facility] PRN Reason: Protocol Last Admin: 08/07/16 09:43 Dose: 40 mg Meropenem 1 gm/ Sodium (Chloride) 100 mls @ 100 mls/hr IVPB Q8@0500,1300,2100 [facility] Last Admin: 08/07/16 05:18 Dose: 100 mls/hr Metoprolol Tartrate (Lopressor) 12.5 mg PO Q12 [facility] Last Admin: 08/07/16 09:46 Dose: 12.5 mg Tamsulosin HCl (Flomax) 0.4 mg PO DAILY [facility] Last Admin: 08/07/16 09:46 Dose: 0.4 mg Physical Exam - Respiratory Exam Respiratory Exam: Clear to Auscultation Bilateral - Cardiovascular Exam Cardiovascular Exam: Irregular Rhythm, +S1, +S2 - Extremities Exam Extremities exam: Positive for: normal inspection - Additional Findings Additional findings: EKG ATRIAL FIBRILLATION Results - Vital Signs Recent Vital Signs: Last Vital Signs Temp 97.2 F L 08/07/16 08:24 Pulse 89 08/07/16 09:46 Resp 20 08/07/16 08:24 BP 117/83 08/07/16 09:46 Pulse Ox 96 08/07/16 08:24 Assessment & Plan - Assessment and Plan (Free Text) Assessment: UROSEPSIS ATRIAL FIBRILLATION MYOCARDIAL BRIDGE Plan: CONTINUE METOPROLOL, AMIODARONE ASPIRIN AND LOVENOX
--- NOTE | 2016-08-07 14:35 | CP.PCM.CON ---
History of Present Illness - History of Present Illness History of Present Illness: 80 yo man admitted to TCU for IV antibiotics and PT due to severer debility recently admitted for retention UTI and a fib and found to have ESBL+ E Coli in urine Review of Systems - Constitutional Constitutional: As Per HPI, Fatigue, Lethargy - EENT Eyes: absent: As Per HPI, Blind Spots, Blurred Vision, Change in Vision, Decreased Night Vision, Diplopia, Discharge, Dry Eye, Exophthalmos, Floaters, Irritation, Itchy Eyes, Loss of Peripheral Vision, Pain, Photophobia, Requires Corrective Lenses, Sees Flashes, Spots in Vision, Tunnel Vision, Other Visual Disturbances, Loss of Vision, Other Ears: absent: As Per HPI, Decreased Hearing, Ear Discharge, Ear Pain, Tinnitus, Abnormal Hearing, Disequilibrium, Dizziness, Other Nose/Mouth/Throat: absent: As Per HPI, Epistaxis, Nasal Congestion, Nasal Discharge, Nasal Obstruction, Nasal Trauma, Nose Pain, Post Nasal Drip, Sinus Pain, Sinus Pressure, Bleeding Gums, Change in Voice, Dental Pain, Dry Mouth, Dysphagia, Halitosis, Hoarsness, Lip Swelling, Mouth Lesions, Mouth Pain, Odynophagia, Sore Throat, Throat Swelling, Tongue Swelling, Facial Pain, Neck Pain, Neck Mass, Other - Cardiovascular Cardiovascular: absent: As Per HPI, Acrocyanosis, Chest Pain, Chest Pain at Rest , Chest Pain with Activity, Claudication, Diaphoresis, Dyspnea, Dyspnea on Exertion, Edema, Irregular Heart Rhythm, Pain Radiating to Arm/Neck/Jaw, Leg Edema, Leg Ulcers, Lightheadedness, Orthopnea, Palpitations, Paroxysmal Nocturnal Dyspnea, Pedal Edema, Radiating Pain, Rapid Heart Rate, Slow Heart Rate, Syncope, Other - Respiratory Respiratory: absent: As Per HPI, Cough, Dyspnea, Hemoptysis, Dyspnea on Exertion , Wheezing, Snoring, Stridor, Pain on Inspiration, Chest Congestion, Excessive Mucous Production, Change in Mucous Color, Pain with Coughing, Other - Gastrointestinal Gastrointestinal: absent: As Per HPI, Abdominal Pain, Belching, Bloating, Change in Bowel Habits, Change in Stool Character, Coffee Ground Emesis, Constipation, Cramping, Diarrhea, Dyspepsia, Dysphagia, Early Satiety, Excessive Flatus, Fecal Incontinence, Heartburn, Hematemesis, Hematochezia, Loose Stools, Melena, Nausea, Odynophagia, Temesmus, Vomiting, Other - Genitourinary Genitourinary: As Per HPI - Reproductive: Male Reproductive:Male: As Per HPI - Musculoskeletal Musculoskeletal: As Per HPI - Integumentary Integumentary: absent: As Per HPI, Acne, Alopecia, Bleeding Lesions, Change in Hair, Change in Nails, Change in Pigmentation, Changing Lesions, Dry Skin, Erythema, Furuncle, Hirsutism, Lesions, New Lesions, Non-Healing Lesions, Photosensitivity, Pruritus, Rash, Skin Pain, Skin Ulcer, Sores, Striae, Swelling , Unusual Bruising, Wounds, Jaundice, Other - Neurological Neurological: absent: As Per HPI, Abnormal Gait, Abnormal Hearing, Abnormal Movements, Abnormal Speech, Behavioral Changes, Burning Sensations, Confusion, Convulsions, Disequilibrium, Dizziness, Numbness, Focal Weakness, Frequent Falls , Headaches, Lack of Coordination, Loss of Vision, Memory Loss, Paresthesias, Radicular Pain, Restless Legs, Sensory Deficit, Syncope, Tingling, Tremor, Vertigo, Weakness, Other Visual Disturbances, Other - Psychiatric Psychiatric: absent: As Per HPI, Abnormal Sleep Pattern, Anhedonia, Anxiety, Auditory Hallucinations, Behavioral Changes, Change in Appetite, Change in Libido, Confusion, Depression, Difficulty Concentrating, Hallucinations, Homicidal Ideation, Hopelessness, Irritability, Memory Loss, Mood Swings, Panic Attacks, Paranoia, Suicidal Ideation, Visual Hallucinations, Tactile Hallucinations, Other - Endocrine Endocrine: absent: As Per HPI, Change in Body Appearance, Change in Libido, Cold Intolorance, Deepening of Voice, Excessive Sweating, Fatigue, Flushing, Heat Intolorance, Increase in Ring/Shoe/Hat Size, Palpitations, Polydipsia, Polyphagia, Polyuria, Other - Hematologic/Lymphatic Hematologic: absent: As Per HPI, Easy Bleeding, Easy Bruising, Lymphadenopathy, Other Past Patient History - Past Medical History & Family History Past Medical History?: Yes - Past Social History Smoking Status: Never Smoked - CARDIAC Hx Cardiac Disorders: Yes Hx Atrial Fibrillation: Yes - PULMONARY Hx Respiratory Disorders: No - NEUROLOGICAL Hx Neurological Disorder: No - HEENT Hx HEENT Problems: No - RENAL Hx Chronic Kidney Disease: No - ENDOCRINE/METABOLIC Hx Endocrine Disorders: No - HEMATOLOGICAL/ONCOLOGICAL Hx Blood Disorders: No Hx AIDS: No Hx Blood Transfusions: No Hx Human Immunodeficiency Virus (HIV): No - INTEGUMENTARY Hx Dermatological Problems: No - MUSCULOSKELETAL/RHEUMATOLOGICAL Hx Falls: Yes - GASTROINTESTINAL Hx Gastrointestinal Disorders: No - GENITOURINARY/GYNECOLOGICAL Hx Genitourinary Disorders: Yes Hx Prostate Problems: Yes Hx Urinary Tract Infection: Yes - PSYCHIATRIC Hx Psychophysiologic Disorder: No Hx Substance Use: No - SURGICAL HISTORY Hx Surgeries: Yes Hx Herniorrhaphy: Yes Other/Comment: bilat hernia surgery 10 years ago - ANESTHESIA Hx Anesthesia: Yes Hx Anesthesia Reactions: No Hx Malignant Hyperthermia: No Meds Allergies/Adverse Reactions: Allergies Allergy/AdvReac Type Severity Reaction Status Date / Time No Known Allergies Allergy Verified 07/31/16 15:32 - Medications Medications: Current Medications Acetaminophen (Tylenol 325mg Tab) 650 mg PO Q6 PRN PRN Reason: Pain, Mild (1-3) Acetaminophen (Tylenol 325mg Tab) 650 mg PO Q6 PRN PRN Reason: Fever >100.4 F Amiodarone HCl (Cordarone) 200 mg PO DAILY [facility] Last Admin: 08/07/16 09:46 Dose: 200 mg Aspirin (Ecotrin) 81 mg PO DAILY [facility] Last Admin: 08/07/16 09:47 Dose: 81 mg Digoxin (Lanoxin) 0.125 mg PO DAILY [facility] Enoxaparin Sodium (Lovenox) 40 mg SC DAILY [facility] PRN Reason: Protocol Last Admin: 08/07/16 09:43 Dose: 40 mg Meropenem 1 gm/ Sodium (Chloride) 100 mls @ 100 mls/hr IVPB Q8@0500,1300,2100 [facility] Last Admin: 08/07/16 14:13 Dose: 100 mls/hr Metoprolol Tartrate (Lopressor) 12.5 mg PO Q12 [facility] Last Admin: 08/07/16 09:46 Dose: 12.5 mg Tamsulosin HCl (Flomax) 0.4 mg PO DAILY [facility] Last Admin: 08/07/16 09:46 Dose: 0.4 mg Physical Exam - Constitutional Appears: Non-toxic, Chronically Ill - Head Exam Head Exam: NORMOCEPHALIC - Eye Exam Eye Exam: PERRL. absent: Scleral icterus - ENT Exam ENT Exam: Mucous Membranes Dry, Normal External Ear Exam - Neck Exam Neck exam: Negative for: Lymphadenopathy, Thyromegaly - Respiratory Exam Respiratory Exam: Decreased Breath Sounds, Clear to Auscultation Bilateral - Cardiovascular Exam Cardiovascular Exam: REGULAR RHYTHM, +S1, +S2 - GI/Abdominal Exam GI & Abdominal Exam: Diminished Bowel Sounds, Soft. absent: Tenderness - Rectal Exam Rectal Exam: Deferred - Exam Exam: NORMAL INSPECTION - Extremities Exam Extremities exam: Negative for: calf tenderness, pedal edema - Back Exam Back exam: absent: CVA tenderness (L), CVA tenderness (R), paraspinal tenderness - Neurological Exam Neurological exam: Alert, CN II-XII Intact, Oriented x3, Reflexes Normal - Psychiatric Exam Psychiatric exam: Depressed - Skin Skin Exam: Dry Results - Vital Signs Recent Vital Signs: Last Vital Signs Temp 97.2 F L 08/07/16 08:24 Pulse 89 08/07/16 09:46 Resp 20 08/07/16 08:24 BP 117/83 08/07/16 09:46 Pulse Ox 96 08/07/16 08:24 Assessment & Plan - Assessment and Plan (Free Text) Plan: esbl e coli uti bph/ urinary retention afib/ ashd/ cardiac bridging needs gu eval and follow upcont iv antibiotics no po alternative
--- NOTE | 2016-08-07 19:24 | CP.PCM.HP ---
History of Present Illness - History of Present Illness History of Present Illness: 80 yo admitted from medical floor for IV abx and deconditioning Present on Admission - Present on Admission Any Indicators Present on Admission: No Past Patient History - Past Medical History & Family History Past Medical History?: Yes - Past Social History Smoking Status: Never Smoked - CARDIAC Hx Cardiac Disorders: Yes Hx Atrial Fibrillation: Yes - PULMONARY Hx Respiratory Disorders: No - NEUROLOGICAL Hx Neurological Disorder: No - HEENT Hx HEENT Problems: No - RENAL Hx Chronic Kidney Disease: No - ENDOCRINE/METABOLIC Hx Endocrine Disorders: No - HEMATOLOGICAL/ONCOLOGICAL Hx Blood Disorders: No Hx AIDS: No Hx Blood Transfusions: No Hx Human Immunodeficiency Virus (HIV): No - INTEGUMENTARY Hx Dermatological Problems: No - MUSCULOSKELETAL/RHEUMATOLOGICAL Hx Falls: Yes - GASTROINTESTINAL Hx Gastrointestinal Disorders: No - GENITOURINARY/GYNECOLOGICAL Hx Genitourinary Disorders: Yes Hx Prostate Problems: Yes Hx Urinary Tract Infection: Yes - PSYCHIATRIC Hx Psychophysiologic Disorder: No Hx Substance Use: No - SURGICAL HISTORY Hx Surgeries: Yes Hx Herniorrhaphy: Yes Other/Comment: bilat hernia surgery 10 years ago - ANESTHESIA Hx Anesthesia: Yes Hx Anesthesia Reactions: No Hx Malignant Hyperthermia: No Meds Allergies/Adverse Reactions: Allergies Allergy/AdvReac Type Severity Reaction Status Date / Time No Known Allergies Allergy Verified 07/31/16 15:32 Physical Exam - Respiratory Exam Respiratory Exam: NORMAL BREATHING PATTERN - Cardiovascular Exam Cardiovascular Exam: REGULAR RHYTHM - GI/Abdominal Exam GI & Abdominal Exam: Normal Bowel Sounds Results - Vital Signs Recent Vital Signs: Last Vital Signs Temp 97.2 F L 08/07/16 16:09 Pulse 62 08/07/16 16:09 Resp 20 08/07/16 16:09 BP 128/70 08/07/16 16:09 Pulse Ox 97 08/07/16 16:09 Assessment & Plan - Assessment and Plan (Free Text) Assessment: UTI/BPH/ Urinary retention 2 sepsis E coli ESBL [facility] Meropenam Flomax Urology ??TRUS ID A-fib with RVR now VR Myocardial bridging Dig Cardiezem ASA B kaycee Amiodorone Cardiology
[2016-08-08 02:43] LABS: RBC URINE 1040 /hpf (0-3); URINE BILIRUBIN NEGATIVE (NEGATIVE); URINE BLOOD LARGE (NEGATIVE); URINE COLOR YELLOW (YELLOW); URINE GLUCOSE (UA) NEG (Normal); URINE KETONE TRACE mg/dL (NEGATIVE); URINE LEUKOCYTE ESTERASE NEG Leu/uL (Negative); URINE PROTEIN 30 mg/dL (NEGATIVE); URINE UROBILINOGEN 0.2-1.0 mg/dL (0.2-1.0); WBC URINE 10 /hpf (0-5)
[2016-08-08] MEDS: Meropenem 1 GM in Sodium Chloride 0.9% 100 ML IVPB SCH ×3 (05:30→20:27)
[2016-08-08] MEDS: Digoxin 125 mcg (0.125 mg) Tab PO SCH (09:04)
[2016-08-08] MEDS: Enoxaparin 40 mg Syringe SC SCH (09:06)
[2016-08-08 09:43] LABS: HEMATOCRIT 41.3 % (35.0-51.0); MEAN CELL VOLUME 94.3 fl (80.0-94.0); MEAN CORPUSCULAR HEMOGLOBIN 30.6 pg (27.0-31.0); MEAN CORPUSCULAR HGB CONC 32.4 g/dL (33.0-37.0); RED CELL DISTRIBUTION WIDTH 13.8 % (11.5-14.5); WHITE BLOOD COUNT 10.9 K/uL (4.8-10.8)
[2016-08-09] MEDS: Meropenem 1 GM in Sodium Chloride 0.9% 100 ML IVPB SCH ×3 (04:31→22:12)
[2016-08-09] MEDS: Digoxin 125 mcg (0.125 mg) Tab PO SCH (09:06)
[2016-08-09] MEDS: Enoxaparin 40 mg Syringe SC SCH (09:06)
--- NOTE | 2016-08-09 13:47 | CP.PCM.PN ---
Subjective - Date & Time of Evaluation Date of Evaluation: 08/09/16 Time of Evaluation: 13:00 - Subjective Subjective: NO CHEST PAIN, PALPITATIONS OR SOB Objective - Vital Signs/Intake and Output Vital Signs (last 24 hours): Temp Pulse Resp BP Pulse Ox 97.2 F L 63 20 146/69 96 08/09/16 07:44 08/09/16 09:06 08/09/16 07:44 08/09/16 09:06 08/09/16 07:44 Intake and Output: 08/09/16 08/09/16 06:59 18:59 Intake Total 220 Output Total 350 Balance -130 - Medications Medications: Current Medications Acetaminophen (Tylenol 325mg Tab) 650 mg PO Q6 PRN PRN Reason: Pain, Mild (1-3) Acetaminophen (Tylenol 325mg Tab) 650 mg PO Q6 PRN PRN Reason: Fever >100.4 F Amiodarone HCl (Cordarone) 200 mg PO DAILY [facility] Last Admin: 08/09/16 09:06 Dose: 200 mg Aspirin (Ecotrin) 81 mg PO DAILY [facility] Last Admin: 08/09/16 09:06 Dose: 81 mg Digoxin (Lanoxin) 0.125 mg PO DAILY [facility] Last Admin: 08/09/16 09:06 Dose: 0.125 mg Enoxaparin Sodium (Lovenox) 40 mg SC DAILY [facility] PRN Reason: Protocol Last Admin: 08/09/16 09:06 Dose: 40 mg Meropenem 1 gm/ Sodium (Chloride) 100 mls @ 100 mls/hr IVPB Q8@0500,1300,2100 [facility] Last Admin: 08/09/16 04:31 Dose: 100 mls/hr Metoprolol Tartrate (Lopressor) 12.5 mg PO Q12 [facility] Last Admin: 08/09/16 09:05 Dose: 12.5 mg Tamsulosin HCl (Flomax) 0.4 mg PO BID [facility] Last Admin: 08/09/16 09:06 Dose: 0.4 mg - Labs Labs: 08/08/16 09:00 - Respiratory Exam Respiratory Exam: Clear to Ausculation Bilateral - Cardiovascular Exam Cardiovascular Exam: Irregular Rhythm, +S1, +S2 - Extremities Exam Extremities Exam: Normal Inspection - Additional Findings Additional findings: EKG ATRIAL FIBRILLATION Assessment and Plan - Assessment and Plan (Free Text) Assessment: UTI/SEPSIS ATRIAL FIBRILLATION BPH Plan: CONTINUE ANTIBIOTICS, AMIODARONE, DIGOXIN, ASPIRIN AND LOVENOX THERAPEUTIC ANTICOAGULATION WAS NOT STARTED FOR ATRIAL FIBRILLATION BECAUSE THE PATIENT STATED THE UROLOGIST SAID HE MAY NEED PROSTATE SURGERY
--- NOTE | 2016-08-09 16:07 | CP.PCM.PN ---
Subjective - Date & Time of Evaluation Date of Evaluation: 08/09/16 Time of Evaluation: 22:22 - Subjective Subjective: Seen by Urology Wadsworth d/c today Objective - Vital Signs/Intake and Output Vital Signs (last 24 hours): Temp Pulse Resp BP Pulse Ox 97.2 F L 63 20 146/69 96 08/09/16 07:44 08/09/16 09:06 08/09/16 07:44 08/09/16 09:06 08/09/16 07:44 Intake and Output: 08/09/16 08/09/16 06:59 18:59 Intake Total 220 Output Total 350 Balance -130 - Medications Medications: Current Medications Acetaminophen (Tylenol 325mg Tab) 650 mg PO Q6 PRN PRN Reason: Pain, Mild (1-3) Acetaminophen (Tylenol 325mg Tab) 650 mg PO Q6 PRN PRN Reason: Fever >100.4 F Amiodarone HCl (Cordarone) 200 mg PO DAILY [facility] Last Admin: 08/09/16 09:06 Dose: 200 mg Aspirin (Ecotrin) 81 mg PO DAILY [facility] Last Admin: 08/09/16 09:06 Dose: 81 mg Digoxin (Lanoxin) 0.125 mg PO DAILY [facility] Last Admin: 08/09/16 09:06 Dose: 0.125 mg Enoxaparin Sodium (Lovenox) 40 mg SC DAILY [facility] PRN Reason: Protocol Last Admin: 08/09/16 09:06 Dose: 40 mg Meropenem 1 gm/ Sodium (Chloride) 100 mls @ 100 mls/hr IVPB Q8@0500,1300,2100 [facility] Last Admin: 08/09/16 14:00 Dose: 100 mls/hr Metoprolol Tartrate (Lopressor) 12.5 mg PO Q12 [facility] Last Admin: 08/09/16 09:05 Dose: 12.5 mg Tamsulosin HCl (Flomax) 0.4 mg PO BID [facility] Last Admin: 08/09/16 09:06 Dose: 0.4 mg - Labs Labs: 08/08/16 09:00 - Respiratory Exam Respiratory Exam: NORMAL BREATHING PATTERN - Cardiovascular Exam Cardiovascular Exam: REGULAR RHYTHM - GI/Abdominal Exam GI & Abdominal Exam: Normal Bowel Sounds Assessment and Plan - Assessment and Plan (Free Text) Assessment: UTI/BPH/ Urinary retention 2 sepsis E coli ESBL [facility] d/c Flomax increased monitor output Meropenam Flomax Urology ID A-fib with RVR now VR Myocardial bridging Dig Cardiezem ASA B kaycee Amiodorone Cardiology
[2016-08-10] MEDS: Meropenem 1 GM in Sodium Chloride 0.9% 100 ML IVPB SCH ×2 (05:01→12:10)
[2016-08-10] MEDS: Digoxin 125 mcg (0.125 mg) Tab PO SCH (08:51)
[2016-08-10] MEDS: Enoxaparin 40 mg Syringe SC SCH (08:52)
--- NOTE | 2016-08-10 14:07 | CP.PCM.PN ---
Subjective - Date & Time of Evaluation Date of Evaluation: 08/10/16 Time of Evaluation: 13:00 - Subjective Subjective: NO CHEST PAIN, PALPITATIONS OR SOB VOIDING BETTER Objective - Vital Signs/Intake and Output Vital Signs (last 24 hours): Temp Pulse Resp BP Pulse Ox 97.5 F L 72 20 165/65 H 99 08/10/16 08:13 08/10/16 08:52 08/10/16 08:13 08/10/16 08:52 08/10/16 08:13 Intake and Output: 08/10/16 08/10/16 06:59 18:59 Output Total 700 Balance -700 - Medications Medications: Current Medications Acetaminophen (Tylenol 325mg Tab) 650 mg PO Q6 PRN PRN Reason: Pain, Mild (1-3) Acetaminophen (Tylenol 325mg Tab) 650 mg PO Q6 PRN PRN Reason: Fever >100.4 F Amiodarone HCl (Cordarone) 200 mg PO DAILY [facility] Last Admin: 08/10/16 08:52 Dose: 200 mg Aspirin (Ecotrin) 81 mg PO DAILY [facility] Last Admin: 08/10/16 08:52 Dose: 81 mg Digoxin (Lanoxin) 0.125 mg PO DAILY [facility] Last Admin: 08/10/16 08:51 Dose: 0.125 mg Meropenem 1 gm/ Sodium (Chloride) 100 mls @ 100 mls/hr IVPB Q8@0500,1300,2100 [facility] Last Admin: 08/10/16 05:01 Dose: 100 mls/hr Metoprolol Tartrate (Lopressor) 12.5 mg PO Q12 [facility] Last Admin: 08/10/16 08:51 Dose: 12.5 mg Tamsulosin HCl (Flomax) 0.4 mg PO BID [facility] Last Admin: 08/10/16 08:51 Dose: 0.4 mg - Labs Labs: 08/08/16 09:00 - Respiratory Exam Respiratory Exam: Clear to Ausculation Bilateral - Cardiovascular Exam Cardiovascular Exam: Irregular Rhythm, +S1, +S2 - Extremities Exam Extremities Exam: Normal Inspection Assessment and Plan - Assessment and Plan (Free Text) Assessment: UTI/SEPSIS BPH ATRIAL FIBRILLATION Plan: CONTINUE IV ANTIBIOTICS, METOPROLOL, AMIODARONE, DIGOXIN, ASPIRIN, FLOMAX FOR BLADDER SCAN TODAY
--- NOTE | 2016-08-10 20:48 | CP.PCM.PN ---
Subjective - Date & Time of Evaluation Date of Evaluation: 08/10/16 Time of Evaluation: 22:22 - Subjective Subjective: Good urine output US done Objective - Vital Signs/Intake and Output Vital Signs (last 24 hours): Temp Pulse Resp BP Pulse Ox 97.5 F L 68 20 143/67 98 08/10/16 20:33 08/10/16 20:33 08/10/16 20:33 08/10/16 20:33 08/10/16 20:33 - Medications Medications: Current Medications Acetaminophen (Tylenol 325mg Tab) 650 mg PO Q6 PRN PRN Reason: Pain, Mild (1-3) Acetaminophen (Tylenol 325mg Tab) 650 mg PO Q6 PRN PRN Reason: Fever >100.4 F Amiodarone HCl (Cordarone) 200 mg PO DAILY [facility] Last Admin: 08/10/16 08:52 Dose: 200 mg Aspirin (Ecotrin) 81 mg PO DAILY [facility] Last Admin: 08/10/16 08:52 Dose: 81 mg Digoxin (Lanoxin) 0.125 mg PO DAILY [facility] Last Admin: 08/10/16 08:51 Dose: 0.125 mg Enoxaparin Sodium (Lovenox) 40 mg SC DAILY [facility] PRN Reason: Protocol Metoprolol Tartrate (Lopressor) 12.5 mg PO Q12 [facility] Last Admin: 08/10/16 08:51 Dose: 12.5 mg Nitrofurantoin Macrocrystals (Macrobid) 100 mg PO Q12 [facility] Tamsulosin HCl (Flomax) 0.4 mg PO BID [facility] Last Admin: 08/10/16 16:57 Dose: 0.4 mg - Labs Labs: 08/08/16 09:00 - Respiratory Exam Respiratory Exam: NORMAL BREATHING PATTERN - Cardiovascular Exam Cardiovascular Exam: REGULAR RHYTHM - GI/Abdominal Exam GI & Abdominal Exam: Normal Bowel Sounds Assessment and Plan - Assessment and Plan (Free Text) Assessment: UTI/BPH/ Urinary retention 2 sepsis E coli ESBL [facility] d/c Flomax increased monitor output Meropenam Flomax Urology ID A-fib with RVR now VR Myocardial bridging Dig Cardiezem ASA B kaycee Amiodorone Cardiology
[2016-08-11 07:01] LABS: HEMATOCRIT 39.2 % (35.0-51.0); MEAN CELL VOLUME 94.8 fl (80.0-94.0); MEAN CORPUSCULAR HEMOGLOBIN 31.2 pg (27.0-31.0); MEAN CORPUSCULAR HGB CONC 32.9 g/dL (33.0-37.0); RED CELL DISTRIBUTION WIDTH 13.6 % (11.5-14.5); WHITE BLOOD COUNT 8.8 K/uL (4.8-10.8)
[2016-08-11 07:31] LABS: ALB/GLOB RATIO 0.9 (1.0-2.1); ALKALINE PHOSPHATASE 86 U/L (38-126); ALT/SGPT 43 U/L (21-72); AST/SGOT 34 U/L (17-59); BLOOD UREA NITROGEN 16 mg/dl (9-20); CARBON DIOXIDE 28 mmol/L (22-30); CHLORIDE 103 mmol/L (98-107); GFR AFRICAN-AMERICAN > 60; GLUCOSE,RANDOM 84 mg/dL (75-110); POTASSIUM 4.6 MMOL/L (3.6-5.0); SODIUM 140 mmol/l (132-148); TOTAL PROTEIN 6.7 G/DL (6.3-8.2)
[2016-08-11 08:18] VITALS: BP 142/69; PULSE 67; TEMP 97.3; O2SAT 99
[2016-08-11] MEDS: Digoxin 125 mcg (0.125 mg) Tab PO SCH (08:27)
[2016-08-11 08:29] VITALS: PULSE 67
[2016-08-11] MEDS ORDERED: Enoxaparin 40 mg Syringe SC SCH (09:00)
--- NOTE | 2016-08-11 10:18 | CP.PCM.PN ---
Subjective - Date & Time of Evaluation Date of Evaluation: 07/14/16 Time of Evaluation: 09:40 - Subjective Subjective: URINATING BETTER Objective - Vital Signs/Intake and Output Vital Signs (last 24 hours): Temp Pulse Resp BP Pulse Ox 97.3 F L 67 20 142/69 99 08/11/16 08:17 08/11/16 08:27 08/11/16 08:17 08/11/16 08:27 08/11/16 08:17 - Medications Medications: Current Medications Acetaminophen (Tylenol 325mg Tab) 650 mg PO Q6 PRN PRN Reason: Pain, Mild (1-3) Acetaminophen (Tylenol 325mg Tab) 650 mg PO Q6 PRN PRN Reason: Fever >100.4 F Amiodarone HCl (Cordarone) 200 mg PO DAILY [facility] Last Admin: 08/11/16 08:26 Dose: 200 mg Aspirin (Ecotrin) 81 mg PO DAILY [facility] Last Admin: 08/11/16 08:26 Dose: 81 mg Digoxin (Lanoxin) 0.125 mg PO DAILY [facility] Last Admin: 08/11/16 08:27 Dose: 0.125 mg Enoxaparin Sodium (Lovenox) 40 mg SC DAILY [facility] PRN Reason: Protocol Metoprolol Tartrate (Lopressor) 12.5 mg PO Q12 [facility] Last Admin: 08/11/16 08:27 Dose: 12.5 mg Nitrofurantoin Macrocrystals (Macrobid) 100 mg PO Q12 [facility] Last Admin: 08/11/16 08:28 Dose: 100 mg Tamsulosin HCl (Flomax) 0.4 mg PO BID [facility] Last Admin: 08/11/16 08:27 Dose: 0.4 mg - Labs Labs: 08/11/16 06:52 08/11/16 06:52 - Respiratory Exam Respiratory Exam: Clear to Ausculation Bilateral - Cardiovascular Exam Cardiovascular Exam: Irregular Rhythm, +S1, +S2 - Extremities Exam Extremities Exam: Normal Inspection - Additional Findings Additional findings: BLADDER SCAN REPORT PENDING NO UROLOGY NOTE IN EMR YET Assessment and Plan - Assessment and Plan (Free Text) Assessment: UTI/SEPSIS BPH ATRIAL FIBRILLATION MYOCARDIAL BRIDGE Plan: CONTINUE DIGOXIN, METOPROLOL, AMIODARONE, ASPIRIN, LOVENOX, ANTIBIOTICS IF THE PATIENT WILL BE DISCHARGED WITHOUT PROSTATE SURGERY, HE SHOULD BE SENT HOME ON ANTICOAGULATION FOR ATRIAL FIBRILLATION WITH XARELTO OR EVEN A SMALL DAILY DOSE OF WARFARIN AND IT CAN BE ADJUSTED AN OUT PATIENT
--- NOTE | 2016-08-11 15:50 | CON ---
DATE: 08/11/2016 The patient admitted with urinary retention, urinary tract infection. The patient is 80 years old. Wadsworth had been previously inserted. The patient was being treated by ID. Urine culture over a perio d of 3 days came normal with no evidence of any recurrent UTI. The patient then had a Wadsworth removed. Trial of voiding revealed 20 mL residual on a bladder scan. Will be discharged with Macrobid, eunice paul followed as an outpatient. Davon Knight MD cc: [id number] TT: 08/11/2016 15:49:12 Confirmation # [id number] Dictation # [id number]
--- NOTE | 2016-08-11 20:30 | CP.PCM.PN ---
Subjective - Date & Time of Evaluation Date of Evaluation: 08/11/16 Time of Evaluation: 22:22 - Subjective Subjective: Post void residual 20 cc Objective - Vital Signs/Intake and Output Vital Signs (last 24 hours): Temp Pulse Resp BP Pulse Ox 97.3 F L 67 20 142/69 99 08/11/16 08:17 08/11/16 08:27 08/11/16 08:17 08/11/16 08:27 08/11/16 08:17 - Labs Labs: 08/11/16 06:52 08/11/16 06:52 - Respiratory Exam Respiratory Exam: NORMAL BREATHING PATTERN - Cardiovascular Exam Cardiovascular Exam: REGULAR RHYTHM - GI/Abdominal Exam GI & Abdominal Exam: Normal Bowel Sounds Assessment and Plan - Assessment and Plan (Free Text) Assessment: UTI/BPH/ Urinary retention 2 sepsis E coli ESBL [facility] d/c Flomax increased US Post void residual 20 cc D/C Meropenam Flomax Macrobib x 7 days Urology and ID appreciated A-fib with RVR now VR Myocardial bridging Dig Cardiezem ASA B kaycee Amiodorone Xarelto Cardiology
== END 2016-08-11 13:50 | disposition home or self-care (01) | DRG 872 ==
LOC: H.TCU 21:45
PROVIDERS: ADMIT Family Medicine Geriatric Medicine; ATTEND Family Medicine Geriatric Medicine
PROC: F07L6ZZ Therapeutic Exercise Treatment of Musculoskeletal System - Lower Back / Lower Extremity (ICD-10-PCS; principal; 2016-08-07)
PROC: F08Z4FZ Home Management Treatment using Assistive, Adaptive, Supportive or Protective Equipment (ICD-10-PCS; 2016-08-07)
DX: A41.9 Sepsis, unspecified organism (principal); Q24.5 Malformation of coronary vessels; N39.0 Urinary tract infection, site not specified; I48.91 Unspecified atrial fibrillation; Z87.440 Personal history of urinary (tract) infections; N40.0 Benign prostatic hyperplasia without lower urinary tract symptoms